=== PATIENT | female | born 1930 | race African-American/Black ===

== ENCOUNTER 2017-01-08 07:59 | Outpatient (CLI) | payer MEDICARE, BC ==
[~2017-01-08] VITALS: Ht 160 cm; Wt 60.5 kg
--- NOTE | ~2017-01-08 | HEMODYNAMI ---
PATIENT:MEG GAYTAN MEDICAL RECORD: [id number] : 32 LOCATION:[facility] ADMISSION DATE: 01/08/17 Generatedon:01/08/201711:38 Patient name: MEG GAYTAN Patient #: [id number] SSN: : 1930 Date of study: 01/08/2017 Page: Of Hemodynamic Procedure Report Patient Data Patient Demographics Procedure consent was obtained First Name: MEG Gender: Female Last Name: LUCILA : 1930 Patient #: [id number] Age: 86 year(s) Race: Black Additional ID: [id number] Contact details Address: [address] [place] [address] DRIVE State: [place] City: [facility] Zip code: [address] Past Medical History Allergies Allergen Reaction Date Comments Reported Codeine 01/08/2017 Other allergy 01/08/2017 Pneumococcal vaccine Admission Admission Data Admission Date: 01/08/2017 Admission Time: 7:59 Procedure Procedure Types Cath Procedure Diagnostic Procedure [facility] w/Coronaries FFR/IVUS Intra-Coronary IVUS Initial PCI Procedure Coronary Stent Initial Miscellaneous Procedures Moderate Sedation up to 30 minutes Procedure Description Procedure Date Procedure Date: 01/08/2017 Procedure Start Time: 11:16 Procedure End Time: 11:35 Procedure Staff Name Function Fritz Hopkins MD Performing Physician Desiree Cano RT Scrub Jamie Campos RN Nurse Belkis Tomas RT Monitor Procedure Data Cath Procedure Fluoroscopy Diagnostic fluoroscopy Total fluoroscopy Time: 3.2 time: 3.2 min min Diagnostic fluoroscopy Total fluoroscopy dose: 380 dose: 380 mGy mGy Contrast Material Contrast Material Type Amount (ml) Isovue 300 80 Entry Location Entry Primary Successful Side Size Upsize Upsize Entry Closure Succes sful Closure Location (Fr) 1 (Fr) 2 (Fr) Remarks Device Remarks Femoral Right 5 Fr 6 Fr Exoseal artery Short Estimated blood loss: 10 ml Diagnostic catheters Device Type Used For End Catheter Placement Cordis 5Fr Pigtail LV Angiography Catheter (MP) Cordis 5Fr JL 4.0 Left Coronary Catheter (MP) Angiography Cordis 5Fr 3DRC Catheter Right Coronary (MP) Angiography Procedure Complications No complications Procedure Medications Medication Administration Route Dosage 0.9% NaCl I.V. 100 ml/hr Oxygen NC 2 l/min Heparin Flush Bag added to field 2 bags (1000units/500ml NS) Lidocaine 2% added to field 20 Versed I.V. 0.5 mg Fentanyl I.V. 25 mcg Heparin Bolus I.V. 4000 units Integrilin (Bolus I.V. 5.6 ml 2mg/ml) Plavix P.O. 600 mg Hemodynamics Rest Heart Rate: 63 (bpm) Snapshots Pre Cath Intra NCS Post Cath Vital Signs Time Heart Resp SPO2 etCO2 CD4ifkx NIBP Rhythm Pain Sedation Rate (ipm) (%) (mmHg) (mmHg) (mmHg) Status Level (bpm) 11:07:32 66 31 93 0 0 111/66(96) NSR 0 (11) 10(A) , No pain 11:12:02 65 16 94 0 0 106/67(89) NSR 0 (11) 10(A) , No pain 11:16:35 57 14 93 0 0 94/57(77) NSR 0 (11) 9(A) , No pain 11:21:05 59 16 94 0 0 92/50(71) NSR 0 (11) 9(A) , No pain 11:25:36 52 19 93 0 0 98/49(72) NSR 0 (11) 9(A) , No pain 11:30:06 54 20 95 0 0 93/54(76) NSR 0 (11) 9(A) , No pain 11:34:36 57 15 93 0 0 96/48(78) NSR 0 (11) 9(A) , No pain Medications Time Medication Route Dose Verified Delivered Reason Notes Effectiveness by by 11:02:57 0.9% NaCl I.V. 100 Jamie Jamie Per physician ml/hr Beth Campos RN RN 11:03:07 Oxygen NC 2 Jamie Jamie Per physician l/min Beth Campos RN RN 11:03:30 Heparin Flush added 2 Jamie Jamie used for Bag to bags Beth Campos procedure (1000units/500ml field RN RN NS) 11:03:43 Lidocaine 2% added 20ml Jamie Jamie for local to vial Beth Campos anesthetic field RN RN 11:13:46 Versed I.V. 0.5 Jamie Jamie for sedation mg Beth Campos RN RN 11:13:57 Fentanyl I.V. 25 Jamie Jamie for sedation mcg Beth Campos RN RN 11:23:17 Heparin Bolus I.V. 4000 Jamie Jamie for units Beth Campos anticoagulation RN RN 11:26:27 Integrilin I.V. 5.6 Jamie Jamie for (Bolus 2mg/ml) ml Beth Campos antiplatelet RN RN therapy 11:32:55 Plavix P.O. 600 Jamie Jamie for mg Beth Campos antiplatelet RN RN therapy Procedure Log Time Note 10:43:47 Belkis Counts RT(R) sent for patient. Start room use. 10:43:48 Time tracking: Regular hours 10:43:52 Plan of Care:Hemodynamics will remain stable., Cardiac rhythm will remain stable., Comfort level will be maintained., Respiratory function will remain adequate., Patient/ family verbilizes understanding of procedure., Procedure tolerated without complication., Recovers from procedure without complications.. 10:57:41 Patient received from Pre/Post Procedure Room to CCL 1 Alert and oriented. Tansferred to table in Supine position. 10:57:42 Warm blankets applied, and noe hugger turned on for patient comfort. 10:57:43 Correct patient and procedure confirmed by team. 10:57:44 Signed procedure consent form obtained from patient. 10:57:45 ECG and BP/O2 sat monitors applied to patient. 10:57:46 Full Disclosure recording started 11:02:57 0.9% NaCl 100 ml/hr I.V. was administered by Jamie Campos RN; Per physician; 11:03:07 Oxygen 2 l/min NC was administered by Jamie Campos RN; Per physician; 11:03:30 Heparin Flush Bag (1000units/500ml NS) 2 bags added to field was administered by Jamie Campos RN; used for procedure; 11:03:43 Lidocaine 2% 20ml vial added to field was administered by Jamie Campos RN; for local anesthetic; 11:06:37 Vital chart was started 11:09:21 Rhythm: sinus rhythm 11:11:23 Baseline sample Acquired. 11:11:28 H&P Date Dictated: 01/08/2017 New H&P dictated by physician.. 11:11:29 Pre-procedure instructions explained to patient. 11:11:29 Pre-op teaching completed and patient verbalized understanding. 11:11:30 Family in patients room. 11:11:32 Patient NPO since Midnight. 11:11:39 Patient allergic to Codeine 11:11:51 Patient allergic to Other allergyPneumococcal vaccine 11:11:53 Is the patient allergic to Iodine/contrast media? No. 11:11:56 Is patient on blood thinner?No 11:11:59 Patient diabetic? Yes. 11:12:00 If diabetic: On Metformin? Yes 11:12:02 If on Metformin: Last Dose? 01/06/2017 11:12:06 Previous problem with sedation/anesthesia? No ? 11:12:07 Snore? No 11:12:08 Sleep apnea? No 11:12:09 Deviated septum? No 11:12:10 Opens mouth fully? Yes 11:12:10 Sticks out tongue? Yes 11:12:12 Airway obstruction? No ? 11:12:14 Dentures? No ? 11:12:16 Pre procedure: right dorsailis pedis pulse 1+ Palpable, but thready & weak; easily obliterated 11:12:18 Modified Nelson's test Ulnar > 7 seconds. 11:12:20 Patient pain scale 0/10 ?. 11:12:28 IV patent on arrival in right forearm with 0.9% NaCl at O. 11:13:04 Lab results completed and on chart. 11:13:06 Right groin area was prepped with chlora-prep and draped in sterile fashion 11:13:07 Final Timeout: patient, procedure, and site verified with staff and physician. All members of the team are in agreement. 11:13:09 Right groin site verified by team. 11:13:11 Physical assessment completed. ASA score P 2 - A patient with mild systemic disease as per Fritz Hopkins MD. 11:13:14 Sedation plan: IV Moderate Sedation Versed, Fentanyl 11:13:46 Versed 0.5 mg I.V. was administered by Jamie Campos RN; for sedation; 11:13:57 Fentanyl 25 mcg I.V. was administered by Jamie Campos RN; for sedation; 11:15:20 Use device set Femoral Dx 11:15:25 Zero performed for pressure channel P1 11:15:33 Zero performed for pressure channel P1 11:15:47 Acist Syringe opened to sterile field. 11:15:48 Bag Decanter opened to sterile field. 11:15:49 Medline Cath Pack opened to sterile field. 11:15:50 Terumo 5Fr Raymond Sheath opened to sterile field. 11:15:50 St Phu 260cm J .035 wire opened to sterile field. 11:15:51 Acist Hand Control opened to sterile field. 11:15:51 Acist Manifold opened to sterile field. 11:15:52 Diagnostic Infinity 5Fr Multipack catheter opened to sterile field. 11:15:52 Tegaderm 4 x 4 opened to sterile field. 11:16:03 Procedure started. 11:16:07 Local anesthetic to right femoral artery with Lidocaine 2% by Fritz Hopkins MD.INITIAL ACCESS ONLY 11:16:46 A 5 Fr sheath was inserted into the Right Femoral artery 11:16:56 A Cordis 5Fr Pigtail Catheter (MP) was advanced over the wire and used for LV Angiography. 11:17:17 LV gram done using ESCALANTE 11:17:22 EF : 50 % 11:17:27 Injector settings: Ml/sec: 10, Volume: 20, 11:17:31 Catheter removed. 11:18:11 A Cordis 5Fr JL 4.0 Catheter (MP) was advanced over the wire and used for Left Coronary Angiography. 11:18:58 Catheter removed. 11:19:17 A Cordis 5Fr 3DRC Catheter (MP) was advanced over the wire and used for Right Coronary Angiography. 11:19:40 Terumo 6Fr Raymond Sheath opened to sterile field. 11:19:41 Pastor Whisper J 300cm 0.014 guide wire opened to sterile field. 11:19:41 Merit BasixCompak Inflation Kit opened to sterile field. 11:19:42 [place] IVUS Catheter opened to sterile field. 11:20:30 RCA OCCLUDED 11:21:02 Cordis 6FR XB 4.0 guide catheter opened to sterile field. 11:21:14 Medtronic Launcher 6Fr EBU 4.0 guide catheter opened to sterile field. 11:21:41 Sheath upsized to a 6 Fr Short. 11:21:48 6 Fr EBU 4.0 guide catheter was inserted over the wire 11::57 Guide Catheter removed. unable to cannulate vessel. 11:23:06 Cordis 6FR XB 3.5 guide catheter opened to sterile field. 11:23:17 Heparin Bolus 4000 units I.V. was administered by Jamie Campos RN; for anticoagulation; 11::18 6 Fr XB 3.5 guide catheter was inserted over the wire 11::08 Whisper wire advanced. 11:24:27 IVUS catheter advanced over wire. 11:24:31 IVUS pass to Circ lesion performed. 11::27 Integrilin (Bolus 2mg/ml) 5.6 ml I.V. was administered by Jamie Campos RN; for antiplatelet therapy; 11::34 IVUS catheter removed over wire. 11::01 Procedure type changed to Cath procedure, Diagnostic procedure, LHC, LHC w/Coronaries, FFR/IVUS, Intra-Coronary IVUS Initial, PCI procedure, Coronary Stent Initial, Miscellaneous Procedures, Moderate Sedation up to 30 minutes 11::58 Inflation Number: 1 A [place] OTW 3.5 x 18 stent was prepped and advanced across the Mid CX. The stent was deployed at 11 ROSI for 0:05 (min:sec). 11:28:11 Inflation number: 2 The stent balloon was then re-inflated across the Mid CX to 15 ROSI for 0:07 (min:sec). 11:28:32 Stent catheter was removed intact over wire. 11:28:33 Wire removed. 11:28:33 Guide catheter removed. 11::41 Sheath removed intact; hemostasis achieved with Exoseal to the Right Femoral artery. 11:29:08 Procedure ended.(Physican Out) 11:30:31 Fluoroscopy time 03.20 minutes. 11:30:35 Flurop Dose total: 380 11:30:35 Fluoroscopy dose: 380 mGy 11:30:38 Contrast amount:Isovue 300 80ml. 11:30:39 Sharps counted by scrub and verified by R.N. 11:30:41 Insertion/operative site no bleeding no hematoma. 11:30:46 Post-op/insertion site Right Femoral artery dressed using a 4 x 4 and Tegaderm. 11:30:49 Post right femoral artery:stable, clean and dry 11:30:51 Post Procedure Pulses reassessed and unchanged 11:31:57 Post procedure: right dorsailis pedis pulse 2+ Normal; easily identifiable; not easily obliterated. 11:31:59 Post-procedure physical assessment completed. ASA score P 2 - A patient with mild systemic disease as per Fritz Hopkins MD. 11:32:02 Post procedure rhythm: unchanged. 11:32:04 Estimated blood loss: 10 ml 11:32:05 Post procedure instruction explained to patient.Patient verbalizes understanding. 11:32:08 Patient needs reinforcement of post procedure teaching. 11:32:21 Procedure Complication : No complications 11:32:23 See physician's report for complete and final results. 11:32:48 Cordis 6Fr Exoseal opened to sterile field. 11:32:55 Plavix 600 mg P.O. was administered by Jamie Campos RN; for antiplatelet therapy; 11:33:49 Procedure and supply charges have been captured, reviewed, submitted and are correct. 11:35:40 Vital chart was stopped 11:35:51 Report given to Pre/Post Procedure Room. 11:35:53 Patient transfered to Pre/Post Procedure Room with Stretcher. 11:35:56 Procedure ended. 11:35:56 Full Disclosure recording stopped 11:35:58 End room use (Document Last) Intervention Summary Intervention Notes Time ActionType Lesion and Equipment Action# Pressure Duration Attributes Used 11:27:58 Place stent Mid CX Stephane OTW 1 11 00:05 3.5 x 18 stent 11:28:11 Reinflate Mid CX Stephane OTW 2 15 00:07 stent 3.5 x 18 balloon stent Device Usage Item Name Manufacture Quantity Catalog Hospital Part Current Minima l Lot# / Number Charge Number Stock Stock Serial# Code Acist Acist 1 16245 371942 730375 549984 20 Syringe Medical Systems Inc Bag Microtek 1 2001S 475757 39686 805365 5 L'Usine Ã [employer]. Medline Cardinal 1 [id number] 106383 46358 400249 5 OANDA Terumo 5Fr Terumo 1 [id number] 936086 428758 787232 [address] Phu 1 943185 338727 814267 101797 30 260cm J .035 wire Acist Hand Acist 1 11248 105118 536494 662861 5 [employer] Inc. (Inspect Manager) Acist Acist 1 92625 755659 674267 618485 5 mobifriends Systems Inc Diagnostic Cardinal 1 [id number] 060177 86936 794536 30 Infinity Health 5Fr Multipack catheter Tegaderm 4 3M 1 1626W 639236 297289 379577 5 x 4 Cordis 5Fr Cardinal 1 764390 5 Pigtail Health Catheter (MP) Cordis 5Fr Cardinal 1 332218 5 JL 4.0 Health Catheter (MP) Cordis 5Fr Cardinal 1 569790 5 3DRC Health Catheter (MP) Terumo 6Fr Terumo 1 [id number] 590940 722152 037535 40 Raymond Sheath Pastor Pastor 1 [id number] 879514 685492 389988 5 isper J Vascular 300cm 0.014 guide wire Merit Merit 1 II1051 132334 478466 703054 15 Baihe Medical Inflation Kit [place] 1 11856C 227451 677912 208369 8 [place] Eagleye IVUS Catheter Cordis 6FR Cardinal 1 [id number] 196219 814457 827135 2 XB 4.0 Health guide catheter Medtronic Medtronic 1 [id number] 136251 69488 610128 1 Launcher 6Fr EBU 4.0 guide catheter Cordis 6FR Cardinal 1 [id number] 494517 983872 516075 2 XB 3.5 Health guide catheter [place] OTW Medtronic 1 [id number] 649111 3548922 679608 5 [id number] 3.5 x 18 stent Cordis 6Fr Cardinal 1 EX600 861827 888723 779723 10 [facility] LLLer Signature Audit Ray Stage Time Signature Unsigned Intra-Procedure 01/08/2017 Belkis 11:38:31 AM Counts RT(R) Signatures Monitor : Belkis Signature : Counts RT Date : Time : [facility] [address] [facility] [place] [address]
[~2017-01-08 07:59] MED LIST: ASPIRIN EC81 M1; CALAN SR240 MG PO; ELIQUIS2.5 MG PO; FERROUS SULFAT325 MG PO; GLUCOTROL XL 1010 MG PO; HYDRALAZINE HCL25 MG PO; LASIX20 MG PO; PRANDIN0.5 MG PO; PRANDIN1 MG PO; PRANDIN2 MG PO; TRADJENTA5 MG PO; ULTRAM50 MG PO; ZESTORETIC 10/11 TAB PO
[2017-01-08 08:32] VITALS: BP 127/55; Ht 160 cm; Wt 60.5 kg
[2017-01-08 09:01] LABS: BASOPHILS 0.2 % (0-2); EOSINOPHILS 0.9 % (0-7); HEMATOCRIT 36.5 % (36.0-48.0); HEMOGLOBIN 11.8 g/dL (12-16); IMMATURE GRANULOCYTES 0.6 % (0-5); LYMPHOCYTES 25.6 % (15-50); MCH 29.2 pg (26.0-34.0); MCHC 32.3 g/dL (31.0-37.0); MCV 90.3 fL (80.0-100.0); MEAN PLATELET VOLUME 9.9 fL (7.4-10.4); MONOCYTES 7.2 % (2-11); NEUTROPHILS 65.5 % (40-80); PLATELET COUNT 236 10x3/uL (130-400); RBC 4.04 10x6/uL (4.00-5.40); WBC 5.4 10x3/uL (4.8-10.8)
[2017-01-08 09:16] LABS: ANION GAP 13.1 mmol/L (8-16); CALCIUM 8.7 mg/dL (8.5-10.1); CARBON DIOXIDE 30.5 mmol/L (21.0-32.0); CREATININE - SERUM 4.8 mg/dL (0.6-1.3); POTASSIUM - SERUM 3.6 mmol/L (3.5-5.1)
--- NOTE | 2017-01-08 12:05 | NUR ---
2L NC, NO RESP DISTRESS. RIGHT GROIN 6F EXOSEAL CDI, NO BLEEDING OR HEMATOMA NOTED. NO C/O NAUSEA OR CHEST PAIN. VSS. INSTRUCTED PT TO KEEP HEAD FLAT ON PILLOW AND RIGHT LEG STRAIGHT.
[2017-01-08] MEDS ORDERED: PLAVIX75 MG PO (12:20)
--- NOTE | 2017-01-08 12:35 | NUR ---
2L NC, NO RESP DISTRESS NOTED. RIGHT GROIN 6F EXOSEAL CDI, NO BLEEDING OR HEMATOMA NOTED. NO C/O PAIN OR NAUSEA. VSS. WILL CONTINUE TO MONITOR.
--- NOTE | 2017-01-08 12:50 | NUR ---
RIGHT GROIN 6F EXOSEAL CDI, NO BLEEDING NOTED. 2L NC, NO RESP DISTRESS. DENIES ANY CHEST PAIN OR NAUSEA. SANDWICH AND DRINK GIVEN. VSS. CALL LIGHT WITHIN REACH.
--- NOTE | 2017-01-08 13:20 | NUR ---
RESTING QUIETLY WITH EYES CLOSED. 2L NC, NO RESP DISTRESS NOTED. RIGHT GROIN 6F EXOSEAL CDI, NO BLEEDING OR HEMATOMA NOTED. DENIES ANY PAIN. FAMILY AT BEDSIDE, CALL LIGHT WITHIN REACH.
--- NOTE | 2017-01-08 13:50 | NUR ---
RESTING QUIETLY WITH EYES CLOSED. 2L NC, NO RESP DISTRESS NOTED. VSS. RIGHT GROIN 6F EXOSEAL CDI, NO BLEEDING OR HEMATOMA NOTED. FAMILY AT BEDSIDE, CALL LIGHT WITHN REACH.
--- NOTE | 2017-01-08 14:55 | NUR ---
HOB ELEVATED 30 DEGREES. DRINK AND FOOD GIVEN. NO C/O NAUSEA. RIGHT GROIN 6F EXOSEAL CDI.
--- NOTE | 2017-01-08 15:21 | NUR ---
PIV REMOVED WITH DRESSING APPLIED. R/GROIN CDI NO BLEEDING NO HEMATOMA NOTED. CHEST PAIN IS DENIED. PATIENT UP TO GET DRESSED FOR DISCHARGE HOME
--- NOTE | 2017-01-08 15:32 | NUR ---
UP TO RESTROOM TO VOID.
--- NOTE | 2017-01-11 16:47 | OP ---
PATIENT NAME: MEG GAYTAN MEDICAL RECORD: [id number] :31 LOCATION:D.CAT ADMISSION DATE: SURGEON: ERICA FRANCO MD DATE OF OPERATION: 01/08/2017 PROCEDURES: 1. PTCA stent left circumflex. 2. Left heart catheterization. 3. Selective coronary angiography. 4. Left ventriculogram. 5. Intravascular ultrasound. INDICATION: Angina and coronary artery disease. PROCEDURE IN DETAIL: After informed consent was obtained and after a detailed explanation of the risks, benefits as well as alternative therapies, the patient elected to proceed with angiogram and angioplasty. The right femoral area was prepped and draped in normal sterile fashion. The right femoral artery was cannulated via modified Seldinger technique with placement of 6-Romansh sheath. All catheters exchanged through this sheath. FINDINGS: Left ventriculogram was performed in the standard 30-degree ESCALANTE view, reveals ejection fraction at 50%. SELECTIVE CORONARY ANGIOGRAPHY: 1. Left main showed no significant angiographic disease. 2. Left anterior descending has 80+ percent stenosis times 2 in the proximal vessel. 3. Left circumflex has a 70% stenosis in the mid vessel confirmed by intravascular ultrasound. 4. The right coronary has a chronic total occlusion. The distal right coronary fills via left to right collaterals that are very well-developed. PTCA STENT OF THE LEFT CIRCUMFLEX: The stent used is a 3.5 x 18 mm Kamrar. Result was 0% residual stenosis. OVERALL IMPRESSION: Successful percutaneous transluminal coronary angioplasty stent of the left circumflex going from 70+ percent initial stenosis to 0% residual stenosis. PLAN: PTCA stent of the LAD in the near future. TRANSINT:[id number] Voice Confirmation ID: [id number] DOCUMENT ID: [id number] ERICA FRANCO MD at 1647 CC: [id number] DICTATION DATE: 01/08/17 1134 SOURCING INTERN: 01/08/17 1211 DEP CLI 01/08/[address] [address]
--- NOTE | 2017-01-11 16:47 | HP ---
PATIENT: MEG GYATAN MEDICAL RECORD: [id number] ACCOUNT: [id number] LOCATION:[facility] : 32 ADMISSION DATE: 01/08/17 HISTORY AND PHYSICAL EXAMINATION DIAGNOSES: 1. Angina. 2. Diabetes. 3. Hypertension. 4. End-stage renal failure. HISTORY OF PRESENT ILLNESS: Mrs. Gaytan presents with anginal symptomatology as an outpatient in an increasing fashion. She underwent risk stratification with nuclear stress test revealing a significant perfusion defect inferior apically as well as laterally, now brought for cardiac catheterization due to ongoing symptomatology. PHYSICAL EXAMINATION: GENERAL APPEARANCE: Well-nourished, well-developed, appears stated age. Level of distress, comfortable. PSYCHIATRIC: Mental status, alert, normal affect. Orientation, oriented to time, place and person. EYES: Lids and conjunctiva, noninjected. No discharge, no pallor. ENT: Lips, teeth, gums, normal dentition. Oropharynx, no cyanosis, no pallor. NECK: Carotid arteries, bilateral normal upstroke, no bruits, no thrills. JUGULAR VEINS: No jugular venous pressure or distention. CERVICAL LYMPH NODES: Nontender, nonenlarged. THYROID: Not enlarged. Nontender. No nodules. LUNGS: Respiratory effort, unlabored. CHEST: Normal curvature. No thoracic deformity. No chest wall tenderness. Percussion, resonant. Auscultation, clear. No wheezes, no rales, no rhonchi. CARDIOVASCULAR: Precordial exam, nondisplaced. No heaves or pericardial thrills. Rate and rhythm, regular. Heart sounds, normal S1, normal S2. No S3, no gallop, no rub. Systolic murmur, not heard. Diastolic murmur, not heard. EXTREMITIES: No cyanosis, no edema. Peripheral pulses, full and equal in all extremities, except as noted. No bruits appreciated. ABDOMEN: Soft, nondistended. Normal aorta. No bruit. Nontender. No masses. Liver, nontender, no hepatomegaly. Spleen, nontender, no splenomegaly. MUSCULOSKELETAL: No joint tenderness. No joint swelling. No erythema. NEUROLOGICAL: Normal gait, normal strength, normal tone. SKIN: Warm and dry. REVIEW OF SYSTEMS: The patient reports easy bruising but reports no swollen glands. The patient reports no fever, no night sweats, no significant weight gain, no significant weight loss. No significant exercise tolerance. The patient reports no dry eyes, no irritation, no vision change. Patient reports no difficulty hearing and no ear pain. Patient reports no frequent nose bleeds or nose and sinus problems. Patient reports on arm pain on exertion. No shortness of breath while lying down. No history of heart murmur. Patient reports no cough, no wheezing or coughing up blood. Patient reports no abdominal pain, no vomiting. Normal appetite. No diarrhea and not vomiting blood. No nausea and no constipation. Patient reports no incontinence. No difficulty urinating. No hematuria. No increased frequency. Patient reports no muscle aches. No weakness, no arthralgias, no back pain. No swelling of the extremities. Patient reports no abnormal mole, no jaundice, no rashes. Reports HISTORY AND PHYSICAL [id number] MEG GAYTAN no loss of consciousness. No weakness and no numbness. No seizures, dizziness, or headaches. The patient reports no depression, no sleep disturbance, feeling safe in a relationship and no alcohol abuse. Patient reports on fatigue. Reports no runny nose or sinus pressure. No itching, no hives, and no frequent sneezing. OVERALL IMPRESSION: Increasing anginal symptomatology, abnormal nuclear stress test; most likely she has hemodynamically significant coronary artery disease. We will proceed with coronary angiography. Further care depends upon findings of the angiography. TRANSINT:[id number] Voice Confirmation ID: [id number] DOCUMENT ID: [id number] ERICA FRANCO MD at 1647 CC: [id number] DICTATION DATE: 01/08/17 0845 DIGITAL CARTOGRAPHER: 01/08/17 0909 DEP CLI 01/08/17 [place] [id number] [place] [id number]
== END 2017-01-08 16:00 ==
LOC: D.CATH 07:59
PROVIDERS: Internal Medicine Interventional Cardiology
DX: I20.9 Angina pectoris, unspecified (principal); E11.22 Type 2 diabetes mellitus with diabetic chronic kidney disease; I12.0 Hypertensive chronic kidney disease with stage 5 chronic kidney disease or end stage renal disease; N18.6 End stage renal disease; R94.30 Abnormal result of cardiovascular function study, unspecified; Z01.812 Encounter for preprocedural laboratory examination
CPT/HCPCS: 93458; 92978; C9600

== ENCOUNTER → 2017-01-15 07:49 | Outpatient (CLI) | payer MEDICARE, BC ==
--- NOTE | ~2017-01-15 | HEMODYNAMI ---
PATIENT:MEG GAYTAN MEDICAL RECORD: [id number] : 32 LOCATION:[facility] ADMISSION DATE: 01/15/17 Generatedon:01/15/201710:14 Patient name: MEG GAYTAN Patient #: [id number] SSN: [id number] : 1930 Date of study: 01/15/2017 Page: Of Hemodynamic Procedure Report Patient Data Patient Demographics Procedure consent was obtained First Name: MEG Gender: Female Last Name: LUCILA : 1930 Patient #: [id number] Age: 86 year(s) Race: Black SSN: [id number] Additional ID: [id number] Contact details Address: [address] [place] [address] [place]IVE State: [place] [facility] [place]: [address] Past Medical History Allergies Allergen Reaction Date Comments Reported Codeine 01/08/2017 Other allergy 01/08/2017 Pneumococcal vaccine Other allergy 01/15/2017 codeine Admission Admission Data Admission Date: 01/15/2017 Admission Time: 7:49 Lab Results Lab Result Date: 01/15/2017 Lab Result Time: 0:00 Biochemistry Name Units Result Min Max BUN mg/dl 18 --(---*)-- 7 18 Creatinine mg/dl 5 --(----)-* 0.6 1.3 CBC Name Units Result Min Max Hemoglobin g/dl 11.6 *-(----)-- 13.5 17.5 Procedure Procedure Types Cath Procedure PCI Procedure Coronary Stent Initial Miscellaneous Procedures Moderate Sedation up to 45 minutes Procedure Description Procedure Date Procedure Date: 01/15/2017 Procedure Start Time: 9:43 Procedure End Time: 10:09 Procedure Staff Name Function Fritz Hopkins MD Performing Physician Haylee Huggins RT Scrub Leif Brooks RN Nurse Tia Hogan RT Monitor Indication CAD Procedure Data Cath Procedure Fluoroscopy Diagnostic fluoroscopy Total fluoroscopy Time: time: 13.5 min 13.5 min Diagnostic fluoroscopy Total fluoroscopy dose: dose: 1161 mGy 1161 mGy Contrast Material Contrast Material Type Amount (ml) Isovue 300 105 Entry Location Entry Primary Successful Side Size Upsize Upsize Entry Closure Succes sful Closure Location (Fr) 1 (Fr) 2 (Fr) Remarks Device Remarks Femoral Right 6 Fr Exoseal artery Short Estimated blood loss: 5 ml Procedure Complications No complications Procedure Medications Medication Administration Route Dosage Oxygen NC 2 l/min Lidocaine 2% added to field 20 Heparin Flush Bag added to field 2 bags (1000units/500ml NS) 0.9% NaCl I.V. 50 ml/hr Versed I.V. 0.5 mg Fentanyl I.V. 25 mcg Heparin Bolus I.V. 4000 units 0.9% NaCl I.V. bolus 100 ml Hemodynamics Rest HGB: 11.6 (g/dl) Heart Rate: 59 (bpm) Snapshots Pre Cath Intra NCS Post Cath Vital Signs Time Heart Resp SPO2 NIBP Rhythm Pain Sedation Rate (ipm) (%) (mmHg) Status Level (bpm) 9:29:21 60 15 100 116/56(93) NSR 0 (11) 10(A) , No pain 9:33:33 56 16 100 108/54(84) NSR 0 (11) 10(A) , No pain 9:37:43 52 14 99 87/47(70) NSR 0 (11) 10(A) , No pain 9:41:46 50 14 100 84/44(61) NSR 0 (11) 9(A) , No pain 9:45:50 51 13 100 84/43(61) NSR 0 (11) 9(A) , No pain 9:49:54 51 14 100 74/42(59) NSR 0 (11) 9(A) , No pain 9:53:54 51 14 100 77/38(57) NSR 0 (11) 9(A) , No pain 9:57:55 51 14 100 72/36(60) NSR 0 (11) 9(A) , No pain 10:01:53 53 15 100 84/45(64) NSR 0 (11) 9(A) , No pain 10:05:57 51 15 100 87/44(65) NSR 0 (11) 9(A) , No pain 10:10:00 56 15 100 89/46(70) NSR 0 (11) 10(A) , No pain Medications Time Medication Route Dose Verified Delivered Reason Notes Effectiveness by by 9:28:06 Oxygen NC 2 Fritz Monicaie used for l/min Sandeep Brooks RN procedure 9:28:13 Lidocaine 2% added 20ml Fritz Fritz for local to vial Sandeep Hopkins MD anesthetic field 9:28:19 Heparin Flush added 2 Fritz Fritz used for Bag to bags Sandeep Hopkins MD procedure (1000units/500ml field NS) 9:28:29 0.9% NaCl I.V. 50 Fritzisrael Andersonie Per physician ml/hr Sandeep Brooks RN 9:35:00 Versed I.V. 0.5 Fritz Andersonie for sedation mg Sandeep Brooks RN 9:35:05 Fentanyl I.V. 25 Fritz Andersonie for sedation mcg Sandeep Brooks RN 9:45:17 Heparin Bolus I.V. 4000 Fritzisrael Andersonie for verifie d units Sandeep Brooks RN anticoagulation with dr hopkins 9:45:39 0.9% NaCl I.V. 100 Fritz Yadav Per physician bolus ml Sandeep Brooks RN Procedure Log Time Note 9:05:55 Leif Brooks RN sent for patient. Start room use. 9:10:54 Informed consent obtained and on chart 9:12:32 Diagnostic Cath Status : Elective 9:12:51 Indication : CAD 9:12:56 Time tracking: Regular hours 9:13:00 Plan of Care:Hemodynamics will remain stable., Cardiac rhythm will remain stable., Comfort level will be maintained., Respiratory function will remain adequate., Patient/ family verbilizes understanding of procedure., Procedure tolerated without complication., Recovers from procedure without complications.. 9:27:32 Patient received from Pre/Post Procedure Room to CCL 2 Alert and oriented. Tansferred to table in Supine position. 9:28:02 Warm blankets applied, and noe hugger turned on for patient comfort. 9:28:03 Correct patient and procedure confirmed by team. 9:28:03 ECG and BP/O2 sat monitors applied to patient. 9:28:04 Baseline sample Acquired. 9:28:04 Vital chart was started 9:28:06 Oxygen 2 l/min NC was administered by Leif Brooks RN; used for procedure; 9:28:10 Rhythm: sinus rhythm 9:28:11 Full Disclosure recording started 9:28:13 Lidocaine 2% 20ml vial added to field was administered by Fritz Hopkins MD; for local anesthetic; 9:28:19 Heparin Flush Bag (1000units/500ml NS) 2 bags added to field was administered by Fritz Hopkins MD; used for procedure; 9:28:23 H&P Date Dictated: 01/15/2017 H&P Addendum completed by physician on day of procedure. (MUST COMPLETE FOR ALL OUTPATIENTS), New H&P dictated by physician.. 9:28:24 Pre-procedure instructions explained to patient. 9:28:24 Pre-op teaching completed and patient verbalized understanding. 9:28:25 Family in waiting room. 9:28:26 Patient NPO since Midnight. 9:28:29 0.9% NaCl 50 ml/hr I.V. was administered by Leif Brooks RN; Per physician; 9:28:40 Patient allergic to Other allergycodeine 9:28:42 Is the patient allergic to Iodine/contrast media? No. 9:28:43 Was the patient premedicated? No 9:30:47 Is patient on blood thinner?Yes 9:30:49 ACC The patient was administered the following blood thiners within the last 24 hours: ACCPlavix 9:30:54 Patient diabetic? Yes. 9:30:55 If diabetic: On Metformin? No 9:30:58 Previous problem with sedation/anesthesia? No ? 9:31:02 Snore? No 9:31:03 Sleep apnea? No 9:31:03 Deviated septum? No 9:31:05 Opens mouth fully? Yes 9:31:08 Sticks out tongue? Yes 9:31:22 Airway obstruction? No ? 9:31:28 Dentures? Yes out 9:32:57 Pre procedure: right dorsailis pedis pulse 1+ Palpable, but thready & weak; easily obliterated 9:33:01 Pre procedure: left dorsailis pedis pulse 1+ Palpable, but thready & weak; easily obliterated 9:33:05 Patient pain scale 0/10 ?. 9:33:18 IV patent on arrival in right wrist with 0.9% NaCl at O. 9:34:34 Lab Result : BUN 18 mg/dl 9:34:34 Lab Result : Creatinine 5 mg/dl 9:34:34 Lab Result : Hemoglobin 11.6 g/dl 9:34:38 Lab results completed and on chart. 9:34:42 Right groin area was prepped with chlora-prep and draped in sterile fashion 9:34:42 Alarms reviewed by R. N. 9:34:43 Sharps counted by scrub and verified by R.N. 9:34:44 Physician arrived 9:34:45 --------ALL STOP TIME OUT------ 9:34:45 Final Timeout: patient, procedure, and site verified with staff and physician. All members of the team are in agreement. 9:34:47 Right groin site verified by team. 9:34:50 Physical assessment completed. ASA score P 2 - A patient with mild systemic disease as per Fritz Hopkins MD. 9:34:53 Sedation plan: IV Moderate Sedation Versed, Fentanyl 9:34:58 Use device set Femoral PCI 9:34:59 Acist Syringe opened to sterile field. 9:35:00 Versed 0.5 mg I.V. was administered by Leif Brooks RN; for sedation; 9:35:00 Acist Hand Control opened to sterile field. 9:35:00 Bag Decanter opened to sterile field. 9:35:00 Medline Cath Pack opened to sterile field. 9:35:01 Terumo 6Fr Holcomb Sheath opened to sterile field. 9:35:01 St Phu 260cm J .035 wire opened to sterile field. 9:35:01 Merit BasixCompak Inflation Kit opened to sterile field. 9:35:02 Acist Manifold opened to sterile field. 9:35:02 Tegaderm 4 x 4 opened to sterile field. 9:35:05 Fentanyl 25 mcg I.V. was administered by Leif Brooks RN; for sedation; 9:35:25 Pastor Whisper J 300cm 0.014 guide wire opened to sterile field. 9:36:20 Zero performed for pressure channel P1 9:40:18 Cordis 6FR XBLAD 4.0 guide catheter opened to sterile field. 9:43:24 Procedure started. 9:43:27 Local anesthetic to right femoral artery with Lidocaine 2% by Fritz Hopkins MD.INITIAL ACCESS ONLY 9:43:37 A 6 Fr Short sheath was inserted into the Right Femoral artery 9:44:00 6 Fr xblad 4 guide catheter was inserted over the wire 9:44:39 LCA angiography performed. 9:44:41 Injector settings: Ml/sec: 3, Volume: 6, 9:45:17 Heparin Bolus 4000 units I.V. was administered by Leif Brooks RN; for anticoagulation; verified with dr hopkins 9:45:39 0.9% NaCl 100 ml I.V. bolus was administered by Leif Brooks RN; Per physician; 9:45:45 whisper wire advanced. 9:47:00 Wire advanced across lesion. 9:47:47 Inflation number: 1 A Mozec Rx 3.0 x 20 balloon was prepped and advanced across the Prox LAD, then inflated to 13 ROSI for 0:10 (min:sec). 9:48:07 Balloon removed over the wire. 9:51:20 The Holden OTW 3.5 x 22 stent was advanced then removed because of failure to cross lesion 9:51:32 [place] Sci Choice PT Extra Support J 300cm .014 gu opened to sterile field. 9:51:54 choice pt wire advanced. 9:53:17 Inflation number: [address] [place] [address] [facility] 3.5 X 15 balloon was prepped and advanced across the Prox LAD, then inflated to 15 ROSI for 0:10 (min:sec). 9:53:27 Inflation number: [address] [place] [address] [facility] 3.5 X 15 balloon was reinflated across the Prox LAD, to 15 ROSI for 0:10 (min:sec). 9:54:12 Inflation number: [address] [place] [address] [facility] 3.5 X 15 balloon was reinflated across the Prox LAD, to 21 ROSI for 0:10 (min:sec). 9:54:50 Balloon removed over the wire. 9:59:08 Inflation number: 5 A [place] Sci Flextome Cutting 3.0 X 10 balloon was prepped and advanced across the Prox LAD, then inflated to 13 ROSI for 0:10 (min:sec). 10:00:04 Inflation number: 6 The [place] Sci Flextome Cutting 3.0 X 10 balloon was reinflated across the Prox LAD, to 13 ROSI for 0:30 (min:sec). 10:01:35 Balloon removed over the wire. 10:03:50 Inflation Number: 7 A Stephane OTW 3.0 x 15 stent was prepped and advanced across the Prox LAD. The stent was deployed at 23 ROSI for 0:10 (min:sec). 10:04:20 Stent catheter was removed intact over wire. 10:08: Wire removed. 10:08:10 Guide catheter removed. 10:08:18 Cordis 6Fr Exoseal opened to sterile field. 10:08:28 Sheath removed intact; hemostasis achieved with Exoseal to the Right Femoral artery. 10:08:46 Procedure ended.(Physican Out) 10:08:56 Fluoroscopy time 13.50 minutes. 10:09:00 Flurop Dose total: 1161 10::00 Fluoroscopy dose: 1161 mGy 10::04 Contrast amount:Isovue 300 105ml. 10:09:06 Sharps counted by scrub and verified by R.N. 10:09:06 Insertion/operative site no bleeding no hematoma. 10:09:09 Post-op/insertion site Right Femoral artery dressed using a 4 x 4 and Tegaderm. 10:09:12 Post right femoral artery:stable 10:09:13 Post Procedure Pulses reassessed and unchanged 10:09:16 Post procedure rhythm: unchanged. 10:09:18 Estimated blood loss: 5 ml 10:09:20 Post procedure instruction explained to patient.Patient verbalizes understanding. 10:09:20 Patient needs reinforcement of post procedure teaching. 10:09:38 Procedure type changed to Cath procedure, PCI procedure, Coronary Stent Initial, Miscellaneous Procedures, Moderate Sedation up to 45 minutes 10:09:39 Procedure and supply charges have been captured, reviewed, submitted and are correct. 10:09:44 Procedure Complication : No complications 10::47 Vital chart was stopped 10::47 See physician's report for complete and final results. 10:09:52 Report given to Pre/Post Procedure Room. 10:09:55 Patient transfered to Pre/Post Procedure Room with Stretcher. 10::57 Procedure ended. 10::57 Full Disclosure recording stopped 10:10:04 ACC-PCI Only Patient was given prescriptions, or instructed by Fritz Hopkins MD to start/continue the following medications upon discharge: Plavix 10:10:05 End room use (Document Last) Intervention Summary Intervention Notes Time ActionType Lesion and Equipment Action# Pressure Duration Attributes Used 9:47:47 Inflate Prox LAD Mozec Rx 1 13 00:10 balloon 3.0 x 20 balloon 9:51:20 Discard Stephane OTW Stent 3.5 x 22 stent 9:53:17 Inflate Prox LAD [place] 2 15 00:[address] [facility] 3.5 X 15 balloon 9:53:27 Reinflate Prox LAD [place] 3 15 00:[address] [facility] 3.5 X 15 balloon 9:54:12 Reinflate Prox LAD [place] 4 21 00:[address] [facility] 3.5 X 15 balloon 9:59:08 Inflate Prox LAD [place] 5 13 00:10 balloon Sci Flextome Cutting 3.0 X 10 balloon 10:00:04 Reinflate Prox LAD [place] 6 13 00:30 balloon Sci Flextome Cutting 3.0 X 10 balloon 10:03:50 [address] stent Prox LAD Stephane OTW 7 23 00:10 3.0 x 15 stent Device Usage Item Name Manufacture Quantity Catalog Number Hospital Part Current Min imal Lot# / Charge Number Stock Stock Serial# Code Acist Acist 1 [id number] 852373 232991 [id number] 20 Syringe Medical Systems Inc Acist Hand Acist 1 75289 002643 192514 813750 5 Control Medical Systems Inc Bag Microtek 1 2002S 942997 25294 636018 5 404 Found! Medical Inc. Medline Cardinal 1 [id number] 428667 76658 411496 5 Cath Pack Health Terumo 6Fr Terumo 1 PEI109 912528 798535 869454 [address] Phu St Phu 1 174070 870371 849279 904608 30 260cm J .035 wire Merit Merit 1 [id number] 821772 157937 545326 15 Intrallect Medical Inflation Kit Acist Acist 1 56874 006955 013424 553174 5 Manifold Medical Systems Inc Tegaderm 4 3M 1 1626W 005034 495192 733251 5 x 4 Pastor Pastor 1 [id number] 817462 703035 885744 5 Whisper J Vascular 300cm 0.014 guide wire Cordis 6FR Cardinal 1 [id number] 022889 413800 186766 3 XBLAD 4.0 Health guide catheter Mozec Rx Cardinal 1 [id number] 892385 92366 337809 5 UMOB06 3.0 x 20 Health balloon Stephane OTW Medtronic 1 [id number] 709664 4578147 067255 5 [id number] 3.5 x 22 stent [place] Sci Akron 1 [id number] 688417 423067 647200 5 [id number] Choice PT Scientific Extra Support J 300cm .014 gu [place] Sci Akron 1 [id number] 898292 713577 [id number] [facility] Scientific 3.5 X 15 balloon [place] Sci Akron 1 [id number] 026081 246181 937046 1 [id number] Flextome Scientific Cutting 3.0 X 10 balloon Holden OTW Medtronic 1 [id number] 329025 310800 365950 5 [id number] 3.0 x 15 stent Cordis 6Fr Cardinal 1 EX600 574342 065879 804815 10 [facility] Signature Audit [place] Stage Time Signature Unsigned Intra-Procedure 01/15/2017 Tia Hogan 10:14:34 AM RT(R) Signatures Monitor : Tia Hogan RT Signature : Date : Time : [place] [id number] JYOTI [place], [place] [address]
[~2017-01-15 07:49] MED LIST changes: +ALPHAGAN 0.2%5 ML EACH EYE; +COSOPT EYE DROPS5 ML LEFT EYE; +PLAVIX75 MG PO; +RENVELA800 MG PO
[2017-01-15 08:06] VITALS: BP 140/59; BMI 23.6
[2017-01-15 08:32] LABS: ANION GAP 9.8 mmol/L (8-16); CALCIUM 8.5 mg/dL (8.5-10.1); CARBON DIOXIDE 32.1 mmol/L (21.0-32.0); POTASSIUM - SERUM 3.9 mmol/L (3.5-5.1)
[2017-01-15 09:06] LABS: BASOPHILS 0.4 % (0-2); EOSINOPHILS 1.3 % (0-7); HEMATOCRIT 35.7 % (36.0-48.0); HEMOGLOBIN 11.6 g/dL (12-16); IMMATURE GRANULOCYTES 0.9 % (0-5); LYMPHOCYTES 30.2 % (15-50); MCH 28.9 pg (26.0-34.0); MCHC 32.5 g/dL (31.0-37.0); MCV 88.8 fL (80.0-100.0); MEAN PLATELET VOLUME 10.1 fL (7.4-10.4); MONOCYTES 10.1 % (2-11); NEUTROPHILS 57.1 % (40-80); PLATELET COUNT 223 10x3/uL (130-400); RBC 4.02 10x6/uL (4.00-5.40); RDW 14.3 % (11.5-14.5); WBC 4.6 10x3/uL (4.8-10.8)
--- NOTE | 2017-01-15 10:20 | NUR ---
RECIEVED TO ROOM VIA STRETCHER FROM COMPUTED TOMOGRAPHY TECHNICIAN WITH 6 FR EXOSEAL R/GROIN CDI NO BLEEDING NO HEMATOMA NOTED. REPORTS OF 2 STENTS TO THE LAD. HR 54 BP 109/47 CHEST PAIN IS DENIED
--- NOTE | 2017-01-15 10:46 | NUR ---
1045 PT SLEEPING, DRESSING TO RIGHT GROIN IS CDI, AREA IS SOFT AND NONTENDER. PEDAL PULSES PALPABLE. FOOT WARM. SINUS BRADYCARDIA ON MONITOR WITH RATE OF 52. FAMILY AT BEDSIDE, CALL LIGHT IN REACH.
--- NOTE | 2017-01-15 11:06 | NUR ---
1100 RIGHT GROIN DRESSING CDI, AREA IS SOFT AND NONTENDER. PEDAL PULSES PALPABLE. SINUS BRADYCARDIA WITH RATE OF 48. FAMILY AT BEDSIDE. CALL LIGHT IN REACH.
--- NOTE | 2017-01-15 11:30 | NUR ---
1130 RIGHT GROIN IS STABLE, WTIH NO BLEEDING OR HEMATOMA. PEDAL PULSES PALPABLE. DAUGHTER AT BEDSIDE. SINUS BRADYCARDIA.
--- NOTE | 2017-01-15 12:12 | NUR ---
1200 SINUS BRAYDCARIA, BP 98/44. RIGHT GROIN DRESSING IS CDI, AREA IS SOFT AND NONTENDER. DAUGHTER AT BEDSIDE, CALL LIGHT IN REACH.
--- NOTE | 2017-01-15 12:27 | NUR ---
1230 PT SLEEPING, DRESSING TO RIGHT GROIN IS CDI, AREA IS SOFT WITH NO HEMATOMA NOTED. SINUS BRADYCARDIA WITH RATE OF 50. BP 110/48. DAUGHTER AT BEDSIDE, CALL LIGHT IN REACH.
--- NOTE | 2017-01-15 13:01 | NUR ---
RESTING QUIETLY NO DISTRESS VSS WITH CHEST PAIN DENIED. 6 FR EXOSEAL R/GROIN CDI NO BLEEDING NO HEMATOMA NOTED
--- NOTE | 2017-01-15 13:33 | NUR ---
R/GROIN REMAINS CDI NO BLEEDING NO HEMATOMA NOTED. VSS WILL MONITOR
--- NOTE | 2017-01-15 13:41 | NUR ---
REPOSITIONED TO SITTING WITH HOB UP 30 DEGREES. 6 FR EXOSEAL R/GROIN CDI NO BLEEDING NO HEMATOMA NOTED. SANDWICH AND JUICE TO BEDSIDE
--- NOTE | 2017-01-15 13:56 | NUR ---
PIV REMOVED WITH DRESSING APPLIED R/GROIN REMAINS STABLE NO BLEEDING NOTED. CHEST PAIN IS DENIED PATIENT UP TO GET DRESSED FOR DISCHARGE HOME
--- NOTE | 2017-01-15 14:05 | NUR ---
VERBAL AND WRITTEN DISCHARGE GONE OVER WITH PATIENT AND FAMILY. ALL VERBALIZED UNDERSTANDING. R/GROIN REMAINS STABLE WITH CHEST PAIN DENIED. TRANSPORTED VIA TO PARKING FOR FAMILY TO DRIVE HOME
--- NOTE | 2017-01-18 13:09 | HP ---
PATIENT: MEG GAYTAN MEDICAL RECORD: [id number] ACCOUNT: [id number] LOCATION:[facility] : 31 ADMISSION DATE: 01/15/17 HISTORY AND PHYSICAL EXAMINATION ADMITTING DIAGNOSES: 1. Angina. 2. Coronary artery disease. 3. Recent cardiac catheterization, PTCA stent of the left circumflex with concomitant disease of the left anterior descending and chronic total occlusion of the right coronary artery. 4. Hypertension. 5. End-stage renal failure. HISTORY OF PRESENT ILLNESS: Mrs. Gaytan presents with anginal symptomatology, found to have 3-vessel coronary artery disease, total occlusion of the RCA with collaterals, significant stenosis of the LAD and left circumflex, underwent successful PTCA stent of the left circumflex, now brought back for PTCA stent of the LAD. PHYSICAL EXAMINATION: GENERAL APPEARANCE: Well-nourished, well-developed, appears stated age. Level of distress, comfortable. PSYCHIATRIC: Mental status, alert, normal affect. Orientation, oriented to time, place and person. EYES: Lids and conjunctiva, noninjected. No discharge, no pallor. ENT: Lips, teeth, gums, normal dentition. Oropharynx, no cyanosis, no pallor. NECK: Carotid arteries, bilateral normal upstroke, no bruits, no thrills. JUGULAR VEINS: No jugular venous pressure or distention. CERVICAL LYMPH NODES: Nontender, nonenlarged. THYROID: Not enlarged. Nontender. No nodules. LUNGS: Respiratory effort, unlabored. CHEST: Normal curvature. No thoracic deformity. No chest wall tenderness. Percussion, resonant. Auscultation, clear. No wheezes, no rales, no rhonchi. CARDIOVASCULAR: Precordial exam, nondisplaced. No heaves or pericardial thrills. Rate and rhythm, regular. Heart sounds, normal S1, normal S2. No S3, no gallop, no rub. Systolic murmur, not heard. Diastolic murmur, not heard. EXTREMITIES: No cyanosis, no edema. Peripheral pulses, full and equal in all extremities, except as noted. No bruits appreciated. ABDOMEN: Soft, nondistended. Normal aorta. No bruit. Nontender. No masses. Liver, nontender, no hepatomegaly. Spleen, nontender, no splenomegaly. MUSCULOSKELETAL: No joint tenderness. No joint swelling. No erythema. NEUROLOGICAL: Normal gait, normal strength, normal tone. SKIN: Warm and dry. REVIEW OF SYSTEMS: The patient reports easy bruising but reports no swollen glands. The patient reports no fever, no night sweats, no significant weight gain, no significant weight loss. No significant exercise tolerance. The patient reports no dry eyes, no irritation, no vision change. Patient reports no difficulty hearing and no ear pain. Patient reports no frequent nose bleeds or nose and sinus problems. Patient reports on arm pain on exertion. No shortness of breath while lying down. No history of heart murmur. Patient reports no cough, no wheezing or coughing up blood. Patient reports no abdominal pain, no vomiting. Normal appetite. No diarrhea and not vomiting blood. No nausea and no constipation. Patient reports no incontinence. No HISTORY AND PHYSICAL [id number] LUCILAMEG difficulty urinating. No hematuria. No increased frequency. Patient reports no muscle aches. No weakness, no arthralgias, no back pain. No swelling of the extremities. Patient reports no abnormal mole, no jaundice, no rashes. Reports no loss of consciousness. No weakness and no numbness. No seizures, dizziness, or headaches. The patient reports no depression, no sleep disturbance, feeling safe in a relationship and no alcohol abuse. Patient reports on fatigue. Reports no runny nose or sinus pressure. No itching, no hives, and no frequent sneezing. OVERALL IMPRESSION: Significant disease of the left anterior descending. We will proceed with percutaneous transluminal coronary angioplasty stent of the left anterior descending. TRANSINT:[id number] Voice Confirmation ID: [id number] DOCUMENT ID: [id number] ERICA FRANCO MD at 1309 CC: [id number] DICTATION DATE: 01/15/17 0853 RIG BUILDER: 01/15/17 1007 [facility] CLI 01/15/17 [facility] [address] [place] [address]
--- NOTE | 2017-01-18 13:09 | OP ---
PATIENT NAME: MEG GAYTAN MEDICAL RECORD: [id number] :31 LOCATION:D.CAT ADMISSION DATE: SURGEON: ERICA FRANCO MD DATE OF OPERATION: 01/15/2017 PROCEDURES: 1. PTCA stent to LAD. 2. Selective coronary angiography. INDICATION: Angina and coronary artery disease. PROCEDURE IN DETAIL: After informed consent was obtained and after detailed explanation of risks, benefits as well as alternative therapies, the patient elected to proceed with angiogram and angioplasty. The right femoral area was prepped and draped in normal sterile fashion. The right femoral artery was cannulated via modified Seldinger technique with placement of 6-Lao sheath. All catheters exchanged through this sheath. FINDINGS: The left descending has greater than 80% stenosis proximally. This would not yield with a 3.0 x 3.5 balloon, tried 3.0 cutting balloon. Stents finally went to form 3.0 x 15 mm [place] and 3.5 x 22 mm [place]. Result was 30% residual stenosis. OVERALL IMPRESSION: Successful percutaneous transluminal coronary angioplasty stent of the left anterior descending going from 80% initial stenosis to 30% residual stenosis. This heavily calcified area in the artery would not open up any further despite cutting balloon and stent balloon taken to 23 atmospheres. TRANSINT:[id number] Voice Confirmation ID: [id number] DOCUMENT ID: [id number] ERICA FRANCO MD at 1309 CC: [id number] DICTATION DATE: 01/15/17 1012 ACCOUNT RESOLUTION SPECIALIST: 01/15/17 1141 [facility] CLI 01/15/17 [place] [id number] [place] [address]
== END | disposition home or self-care (01) ==
LOC: D.CATH 07:49
PROVIDERS: Internal Medicine Interventional Cardiology
DX: I25.119 Atherosclerotic heart disease of native coronary artery with unspecified angina pectoris (principal); I12.0 Hypertensive chronic kidney disease with stage 5 chronic kidney disease or end stage renal disease; N18.6 End stage renal disease; Z01.812 Encounter for preprocedural laboratory examination; Z95.5 Presence of coronary angioplasty implant and graft

== ENCOUNTER 2017-02-16 13:15 | Inpatient (IN) | payer MEDICARE, BC ==
[~2017-02-16] VITALS: Ht 160 cm; Wt 64.5 kg
--- NOTE | ~2017-02-16 | HEMODYNAMI ---
PATIENT:MEG GAYTAN MEDICAL RECORD: [id number] : 32 [id number] ADMISSION DATE: 02/16/17 Generatedon:02/18/20174:41 Patient name: MEG GAYTAN Patient #: [id number] SSN: [id number] : 1930 Date of study: 02/18/2017 Page: Of Hemodynamic Procedure Report Patient Data Patient Demographics Procedure consent was obtained First Name: MEG Gender: Female Last Name: LUCILA : 1930 Patient #: [id number] Age: 86 year(s) Race: Black SSN: [id number] Additional ID: [id number] Contact details [address]: [address] [place] [address] [address]IVE State: [place] [facility] Zip code: [address] Past Medical History Allergies Allergen Reaction Date Comments Reported Codeine 01/08/2017 Other allergy 01/08/2017 Pneumococcal vaccine Other allergy 01/15/2017 codeine Other allergy 02/18/2017 codeine, Admission Admission Data Admission Date: 02/16/2017 Admission Time: 16:02 Admit Source: Other Room #: D.2116 Height (in.): 62.99 BSA: 1.65 (m2) Height (cm.): 160 BMI: 24.25 (kg/m2) Weight (lbs.): 136.89 Weight (kg.): 62.09 Procedure Procedure Types Cath Procedure Diagnostic Procedure LHC Coronaries only Temporary Pacemaker Intra-Aortic Balloon Pump PCI Procedure PTCA Initial Peripheral Cath Diagnostic Procedure Abd/Extremity Aortagram Procedure Description Procedure Date Procedure Date: 02/18/2017 Procedure Start Time: 3:22 Procedure End Time: 4:33 Procedure Staff Name Function Leif Brooks RN Nurse Ranjana Benitez MD Admitting Physician Ranjana Benitez MD Interpreting ecg technician Sameer Caputo MD Performing Physician Haylee Huggins RT Scrub Tia Hogan RT Monitor Procedure Data Cath Procedure Fluoroscopy Diagnostic fluoroscopy Total fluoroscopy Time: time: 14.7 min 14.7 min Diagnostic fluoroscopy Total fluoroscopy dose: 645 dose: 645 mGy mGy Contrast Material Contrast Material Type Amount (ml) Isovue 300 79 Entry Location Entry Primary Successful Side Size Upsize Upsize Entry Closure Succes sful Closure Location (Fr) 1 (Fr) 2 (Fr) Remarks Device Remarks Femoral Right 6 Fr Sheath vein Short sutured in place Femoral Right 6 Fr 7 Fr Sheath artery Short Short sutured in place Estimated blood loss: 5 ml Diagnostic catheters Device Type Used For End Catheter Placement Cordis 5Fr JL 4.0 Left Coronary Catheter (MP) Angiography Cordis 5Fr Pigtail LV Angiography Catheter (MP) Procedure Complications No complications Procedure Medications Medication Administration Route Dosage Oxygen NC 3 l/min Lidocaine 2% added to field 20 Heparin Flush Bag added to field 2 bags (1000units/500ml NS) 0.9% NaCl I.V. Heparin Bolus I.V. 6000 units Dopamine I.V. drip 10 mcg/kg/min (400mg/250ml D5W) Nitroglycerin IC/IA I.C. 50 mcg Integrilin (Bolus I.V. 5.6 ml 2mg/ml) Dopamine I.V. drip 5 mcg/kg/min (400mg/250ml D5W) Brilinta P.O. 180 mg Oxygen NRB 12 l/min Hemodynamics Rest BSA: 1.65 (m2) O2 Consumption: Estimated: 135.57 (ml/min) O2 Consumption indexed : Estimated:82.16 (ml/min/m) Heart Rate: 52 (bpm) Snapshots Pre Cath Intra NCS Post Cath Vital Signs Time Heart Resp SPO2 etCO2 NIBP Rhythm Pain Sedation Rate (ipm) (%) (mmHg) (mmHg) Status Level (bpm) 3:18:35 55 89 0 107/59(77) NSR 0 (11) 9(A) , No pain 3:23:10 70 90 0 103/62(82) NSR 0 (11) 9(A) , No pain 3:27:46 79 26 91 0 76/52(63) NSR 0 (11) 9(A) , No pain 3:32:15 80 27 86 0 77/52(56) NSR 0 (11) 9(A) , No pain 3:38:19 79 27 90 0 Disturbed NSR 0 (11) 9(A) , No pain 3:41:01 80 28 0 Disturbed NSR 0 (11) 9(A) , No pain 3:43:37 79 38 84 0 60/34(0) NSR 0 (11) 9(A) , No pain 3:46:59 79 52 90 0 Disturbed NSR 0 (11) 9(A) , No pain 3:51:58 79 34 86 0 Measuring NSR 0 (11) 9(A) , No pain 3:53:27 79 27 0 52/38(0) NSR 0 (11) 9(A) , No pain 3:58:26 78 20 89 0 62/40(0) NSR 0 (11) 9(A) , No pain 3:59:09 79 29 91 0 65/39(47) NSR 0 (11) 9(A) , No pain 4:03:35 80 24 0 79/48(65) NSR 0 (11) 9(A) , No pain 4:08:44 103 25 0 106/62(81) NSR 0 (11) 9(A) , No pain 4:13:15 79 18 90 0 120/80(97) NSR 0 (11) 9(A) , No pain 4:17:49 73 16 87 0 96/66(79) NSR 0 (11) 9(A) , No pain 4:23:09 78 27 0 73/33(42) NSR 0 (11) 9(A) , No pain 4:26:19 79 30 90 0 66/37(50) NSR 0 (11) 9(A) , No pain 4:30:47 21 91 0 70/32(58) NSR 0 (11) 9(A) , No pain Medications Time Medication Route Dose Verified Delivered Reason No alem Effectiveness by by 3:12:03 0.9% NaCl I.V. kvo ml/hr Sameer Buffie Per physician Donta Brooks RN 3:12:31 Oxygen NC 3 l/min Sameer Buffie used for Donta Brooks RN procedure 3:12:39 Lidocaine 2% added 20ml vial Sameer Sameer for local to Donta Caputo MD anesthetic field 3:12:41 Heparin Flush added 2 bags Sameer Sameer used for Bag to Donta Caputo MD procedure (1000units/500ml field NS) 3:34:48 Heparin Bolus I.V. 6000 units Sameer Buffie for ve rified Donta Brooks RN anticoagulation with dr caputo 3:40:19 Oxygen NRB 12 l/min Sameer Buffie for low 02 sats Donta Brooks RN 3:48:43 Dopamine I.V. 10 Sameer Buffie Per physician (400mg/250ml drip mcg/kg/min Donta Brooks RN D5W) 3:49:57 Nitroglycerin I.C. 50 mcg Sameer Sameer for IC/IA Donta Caputo MD vasodilation 3:57:06 Integrilin I.V. 5.6 ml Sameer Buffie for (Bolus 2mg/ml) Donta Brooks RN antiplatelet therapy 4:09:28 Dopamine I.V. 5 Sameer Buffie Per physician (400mg/250ml drip mcg/kg/min Donta Brooks RN D5W) 4:28:06 Brilinta P.O. 180 mg Sameer Monicaie for Donta Brooks RN antiplatelet therapy Procedure Log Time Note 2:54:36 Diagnostic Cath status Urgent 2:55:15 Patient Height : 62.99 inches 2:55:22 Patient Weight : 136.89 lbs 2:55:52 Time tracking: Call back 2:55:59 Plan of Care:Hemodynamics will remain stable., Cardiac rhythm will remain stable., Comfort level will be maintained., Respiratory function will remain adequate., Patient/ family verbilizes understanding of procedure., Procedure tolerated without complication., Recovers from procedure without complications.. 2:56:06 Admit Source: Other 2:56:14 Leif Brooks RN sent for patient. Start room use. 3:12:03 0.9% NaCl kvo ml/hr I.V. was administered by Leif Brooks RN; Per physician; 3:12:31 Oxygen 3 l/min NC was administered by Leif Brooks RN; used for procedure; 3:12:34 Patient received from Med II to CCL 1 Alert and oriented. Tansferred to table in Supine position. 3:12:36 Warm blankets applied, and noe hugger turned on for patient comfort. 3:12:38 Correct patient and procedure confirmed by team. 3:12:39 Lidocaine 2% 20ml vial added to field was administered by Sameer Caputo MD; for local anesthetic; 3:12:40 Signed procedure consent form obtained from patient. 3:12:41 Heparin Flush Bag (1000units/500ml NS) 2 bags added to field was administered by Sameer Caputo MD; used for procedure; 3:12:41 ECG and BP/O2 sat monitors applied to patient. 3:12:42 Vital chart was started 3:12:44 Baseline sample Acquired. 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 3:13:15 Pre-op teaching completed and patient verbalized understanding. 3:13:15 Pre-procedure instructions explained to patient. 3:13:17 Family in waiting room. 3:13:19 Patient NPO since Midnight. 3:14:05 Patient allergic to Other allergycodeine, 3:14:09 Is the patient allergic to Iodine/contrast media? No. 3:14:10 Was the patient premedicated? No 3:14:11 Is patient on blood thinner?Yes 3:14:18 ACC The patient was administered the following blood thiners within the last 24 hours: ACCHeparin 3:14:22 Patient diabetic? No. 3:14:27 Previous problem with sedation/anesthesia? No ? 3:14:30 Snore? Yes 3:14:33 Sleep apnea? No 3:14:35 Deviated septum? No 3:14:37 Opens mouth fully? Yes 3:14:38 Sticks out tongue? Yes 3:14:40 Airway obstruction? No ' 3:14:45 Dentures? No ? 3:14:49 Pre procedure: right dorsailis pedis pulse Doppler 3:14:53 Pre procedure: left dorsailis pedis pulse Doppler 3:14:57 Patient pain scale 0/10 ?. 3:15:09 IV patent on arrival in right wrist with 0.9% NaCl at [facility]. 3:15:13 Lab results completed and on chart. 3:15:18 Right groin area was prepped with chlora-prep and draped in sterile fashion 3:15:20 Sharps counted by scrub and verified by R.N. 3:15:20 Alarms reviewed by R. N. 3:15:21 Physician arrived 3:15:22 Physician arrived 3:15:23 --------ALL STOP TIME OUT------ 3:15:24 Final Timeout: patient, procedure, and site verified with staff and physician. All members of the team are in agreement. 3:15:27 Right groin site verified by team. 3:15:34 Physical assessment completed. ASA score P 2 - A patient with mild systemic disease as per Sameer Caputo MD. 3:15:38 Sedation plan: IV Moderate Sedation Versed, Fentanyl 3:19:38 Use device set Femoral Dx 3:19:39 Bag Decanter opened to sterile field. 3:19:39 Acist Syringe opened to sterile field. 3:19:40 Medline Cath Pack opened to sterile field. 3:19:41 St Phu 260cm J .035 wire opened to sterile field. 3:19:43 Acist Hand Control opened to sterile field. 3:19:44 Diagnostic Infinity 5Fr Multipack catheter opened to sterile field. 3:19:44 Acist Manifold opened to sterile field. 3:19:45 Tegaderm 4 x 4 opened to sterile field. 3:22:00 Procedure started. 3:22:05 Local anesthetic to right femoral vein with Lidocaine 2% by Sameer Caputo MD.INITIAL ACCESS ONLY 3:22:18 A 6 Fr Short sheath was inserted into the Right Femoral vein 3:22:35 Temporary pacer inserted 3:23:18 Zero performed for pressure channel P1 3:23:36 Temporary pacer turned on with the following settings: Rate 80, MA 3, Mode: Demand. 3:25:07 Terumo 6Fr Greenleaf Sheath opened to sterile field. 3:25:08 Terumo 6Fr Greenleaf Sheath opened to sterile field. 3:26:08 5Fr J Tip Temporary Pacing Catheter opened to sterile field. 3:26:10 High Pressure Extension Tubing (Donta) opened to sterile field. 3:26:57 Pastor BMW Granite 2 J-tip 300cm 0.014 guide wir opened to sterile field. 3:28:22 Local anesthetic to right femoral artery with Lidocaine 2% by Sameer Caputo MD.ADDITIONAL ACCESS 3:29:39 A 6 Fr Short sheath was inserted into the Right Femoral artery 3:30:10 A Cordis 5Fr JL 4.0 Catheter (MP) was advanced over the wire and used for Left Coronary Angiography. 3:30:28 LCA angiography performed. 3:30:31 Injector settings: Ml/sec: 3, Volume: 6, 3:32:10 Cordis 6FR XBLAD 3.5 guide catheter opened to sterile field. 3:32:16 Catheter removed. 3:32:25 6 Fr xblad 3.5 guide catheter was inserted over the wire 3:32:48 bmw wire advanced. 3:34:48 Heparin Bolus 6000 units I.V. was administered by Leif Brooks RN; for anticoagulation; verified with dr caputo 3:36:06 Wire removed. 3:36:26 whisper wire advanced. 3:36:38 Pastor Whisper J 300cm 0.014 guide wire opened to sterile field. 3:39:50 Wire advanced across lesion. 3:40:19 Oxygen 12 l/min NRB was administered by Leif Brooks RN; for low 02 sats; 3:40:57 Inflation number: 1 A Hollywood Sci Schoolcraft 2.5 X 20 balloon was prepped and advanced across the Prox LAD, then inflated to 6 ROSI for 0:10 (min:sec). 3:41:04 Inflation number: 2 The Hollywood Sci Schoolcraft 2.5 X 20 balloon was reinflated across the Prox LAD, to 8 ROSI for 0:10 (min:sec). 3:41:44 Inflation number: 3 The Hollywood Sci Schoolcraft 2.5 X 20 balloon was reinflated across the Prox LAD, to 10 ROSI for 0:10 (min:sec). 3:42:29 Inflation number: 4 The Hollywood Sci Schoolcraft 2.5 X 20 balloon was reinflated across the Prox LAD, to 12 ROSI for 0:10 (min:sec). 3:43:17 Inflation number: 5 The Hollywood Sci Schoolcraft 2.5 X 20 balloon was reinflated across the Prox LAD, to 10 ROSI for 0:10 (min:sec). 3:47:31 Pastor BMW Granite 2 J-tip 300cm 0.014 guide wir opened to sterile field. 3:48:12 whisper wire exchanged for bmw wire 3:48:43 Dopamine (400mg/250ml D5W) 10 mcg/kg/min I.V. drip was administered by Leif Brooks RN; Per physician; 3:49:57 Nitroglycerin IC/IA 50 mcg I.C. was administered by Sameer Caputo MD; for vasodilation; 3:51:52 Inflation number: 6 The Hollywood Sci Schoolcraft 2.5 X 20 balloon was reinflated across the Prox LAD, to 10 ROSI for 0:10 (min:sec). 3:52:32 Inflation number: 7 The Hollywood Sci Schoolcraft 2.5 X 20 balloon was reinflated across the Prox LAD, to 12 ROSI for 0:10 (min:sec). 3:55:46 Balloon removed over the wire. 3:56:05 Wire removed. 3:56:07 Guide catheter removed. 3:56:14 A CordFirework 5Fr Pigtail Catheter (MP) was advanced over the wire and used for LV Angiography. 3:57:06 Integrilin (Bolus 2mg/ml) 5.6 ml I.V. was administered by Leif Brooks RN; for antiplatelet therapy; 3:57:34 Abdominal Aortagram was performed. 4:00:18 Terumo 7Fr Greenleaf Sheath opened to sterile field. 4:00:19 Datascope IABP 34cm balloon catheter opened to sterile field. 4:01:10 Sheath upsized to a 7 Fr Short. 4:08:56 34cc IABP inserted into the RFA . 4:09:28 Dopamine (400mg/250ml D5W) 5 mcg/kg/min I.V. drip was administered by Leif Brooks RN; Per physician; 4:10:13 Augmentation: 1:1 per physician. 4:17:12 SUTURE SILK 2-0 BLK BR FS 18 I opened to sterile field. 4:17:12 SUTURE SILK 2-0 BLK BR FS 18 I opened to sterile field. 4:18:10 Sheath removed intact; hemostasis achieved with Sheath sutured in place to the Right Femoral vein. 4:18:17 Sheath removed intact; hemostasis achieved with Sheath sutured in place to the Right Femoral artery. 4:18:32 Procedure ended.(Physican Out) 4:19:19 Fluoroscopy time 14.70 minutes. 4:19:31 Fluoroscopy dose: 645 mGy 4:19:31 Flurop Dose total: 645 4:20:16 Contrast amount:Isovue 300 79ml. 4:20:18 Sharps counted by scrub and verified by R.N. 4:20:21 Insertion/operative site no bleeding no hematoma. 4:20:35 Post right femoral artery:stable 4:20:37 Post Procedure Pulses reassessed and unchanged 4:20:53 Post procedure rhythm: sinus rhythm , paced 4:20:56 Estimated blood loss: 5 ml 4:20:59 Post procedure instruction explained to patient.Patient verbalizes understanding. 4:21:01 Patient needs reinforcement of post procedure teaching. 4:28:06 Brilinta 180 mg P.O. was administered by Leif Brooks RN; for antiplatelet therapy; 4:33:00 Procedure type changed to Cath procedure, Diagnostic procedure, LHC, Coronaries only, Temporary Pacemaker, Intra-Aortic Balloon Pump, PCI procedure, PTCA Initial, Peripheral Cath Diagnostic Procedure, Abd/Extremity, Aortagram 4:33:02 Procedure and supply charges have been captured, reviewed, submitted and are correct. 4:33:08 Procedure Complication : No complications 4:33:12 Vital chart was stopped 4:33:13 See physician's report for complete and final results. 4:33:29 Report given to CVICU. 4:33:34 Patient transfered to CVICU with Stretcher. 4:33:38 Full Disclosure recording stopped 4:33:38 Procedure ended. 4:33:47 ACC-PCI Only Patient was given prescriptions, or instructed by Sameer Caputo MD to start/continue the following medications upon discharge: Brilinta 4:33:49 End room use (Document Last) Intervention Summary Intervention Notes Time ActionType Lesion and Equipment Action# Pressure Duration Attributes Used 3:40:57 Inflate Prox LAD Hollywood 1 6 00:10 balloon Sci Schoolcraft 2.5 X 20 balloon 3:41:04 Reinflate Prox LAD Hollywood 2 8 00:10 balloon Sci Schoolcraft 2.5 X 20 balloon 3:41:44 Reinflate Prox LAD Hollywood 3 10 00:10 balloon Sci Schoolcraft 2.5 X 20 balloon 3:42:29 Reinflate Prox LAD Hollywood 4 12 00:10 balloon Sci Schoolcraft 2.5 X 20 balloon 3:43:17 Reinflate Prox LAD Hollywood 5 10 00:10 balloon Sci Schoolcraft 2.5 X 20 balloon 3:51:52 Reinflate Prox LAD Hollywood 6 10 00:10 balloon Sci Schoolcraft 2.5 X 20 balloon 3:52:32 Reinflate Prox LAD Hollywood 7 12 00:10 balloon Sci Schoolcraft 2.5 X 20 balloon Device Usage Item Name Manufacture Quantity Catalog Number Hospital Part Current Mini mal Lot# / Charge Number Stock Stock Serial# Code Acist Acist 1 23090 367023 838513 291696 20 Syringe Medical Systems Inc Bag Microtek 1 2002S 906178 26233 101686 5 DecAssurity Group Inc. Medline Cardinal 1 [id number] 143125 08634 422[address] Phu 1 658636 528712 137755 865404 30 260cm J .035 wire Acist Hand Acist 1 73782 453221 210604 870528 5 Control Medical Systems Inc Acist Acist 1 77527 009258 692022 725141 5 Manifold Medical Systems Inc Diagnostic Cardinal 1 [id number] 395072 02934 220052 30 Infinity Health 5Fr Multipack catheter Tegaderm 4 3M 1 1626W 994285 648088 789185 5 x 4 Terumo 6Fr Terumo 2 [id number] 987293 512243 578736 40 Greenleaf Sheath 5Fr J Tip Guzman 1 [id number] 623071 65058 377360 2 Temporary Lifesciences Pacing Catheter High Merit 1 [id number] 540753 39400 446603 10 Pressure Medical Extension Tubing (Caputo) Pastor BMW Pastor 2 [id number] 942074 995905 297833 5 Granite Vascular 2 J-tip 300cm 0.014 guide wir Cordis 5Fr Cardinal 1 294196 5 JL 4.0 Health Catheter (MP) Cordis 6FR Cardinal 1 [id number] 879364 941000 647101 10 XBLAD 3.5 Health guide catheter Pastor Pastor 1 [id number] 930425 893344 624221 5 Whisper J Vascular 300cm 0.014 guide wire Hollywood Sci Hollywood 1 [id number] 059228 087476 794066 1 [id number] Schoolcraft Scientific 2.5 X 20 balloon Cordis 5Fr Cardinal 1 [id number] 5 Pigtail Health Catheter (MP) Terumo 7Fr Terumo 1 [id number] 435958 998742 488399 5 Greenleaf Sheath Datascope Datascope 1 [id number] 606651 350468 734565 1 IABP 34cm balloon catheter SUTURE Ethicon 2 685H 011422 034256 5 SILK 2-0 BLK BR FS 18 I Signature Audit Mobile Stage Time Signature Unsigned Intra-Procedure 02/18/2017 Tia Hogan 4:41:49 AM RT(R) Signatures Monitor : Tia Hogan RT Signature : Date : Time : [facility] [address] [facility] [place] [address]
[~2017-02-16 13:15] MED LIST changes: -ALPHAGAN 0.2%5 ML EACH EYE; -COSOPT EYE DROPS5 ML LEFT EYE; -RENVELA800 MG PO
[2017-02-16 13:49] LABS: BASOPHILS 0.2 % (0-2); EOSINOPHILS 0.6 % (0-7); HEMATOCRIT 35.7 % (36.0-48.0); HEMOGLOBIN 11.5 g/dL (12-16); IMMATURE GRANULOCYTES 0.4 % (0-5); LYMPHOCYTES 15.1 % (15-50); MCH 29.3 pg (26.0-34.0); MCHC 32.2 g/dL (31.0-37.0); MCV 90.8 fL (80.0-100.0); MEAN PLATELET VOLUME 10.3 fL (7.4-10.4); MONOCYTES 5.1 % (2-11); NEUTROPHILS 78.6 % (40-80); PLATELET COUNT 202 10x3/uL (130-400); RBC 3.93 10x6/uL (4.00-5.40); RDW 14.7 % (11.5-14.5); WBC 11.3 10x3/uL (4.8-10.8)
[2017-02-16 14:02] LABS: ALBUMIN 3.7 g/dL (3.4-5.0); ALKALINE PHOSPHATASE 88 U/L (46-116); ALT (SGPT) 26 U/L (10-68); BILIRUBIN - TOTAL 0.63 mg/dL (0.2-1.3); CALC OSMOLALITY 287 mosm/kg (275-300); CALCIUM 9.5 mg/dL (8.5-10.1); CHLORIDE - SERUM 96 mmol/L (98-107); CREATININE - SERUM 4.7 mg/dL (0.6-1.3); POTASSIUM - SERUM 3.8 mmol/L (3.5-5.1); PROTEIN - SERUM 7.6 g/dL (6.4-8.2); SODIUM 139 mmol/L (136-145); UREA NITROGEN 12 mg/dL (7-18); eGFR NON AFRICAN AMERICAN 9 mL/min (90-120)
[2017-02-16 14:06] LABS: GLUCOSE 272 mg/dL (74-106)
[2017-02-16 14:26] LABS: CKMB 0.5 U/L (0.0-3.6); CREATINE KINASE 55 UL (21-215); TROPONIN-I 0.026 ng/mL (0.000-0.060)
[2017-02-16 17:58] VITALS: BP 98/54; BMI 23.0
[2017-02-16] MEDS ORDERED: ALPHAGAN 0.2%5 ML EACH EYE (18:05)
[2017-02-16] MEDS ORDERED: RENVELA800 MG PO (18:05)
[2017-02-16] MEDS ORDERED: COSOPT EYE DROPS5 ML LEFT EYE (18:06)
--- NOTE | 2017-02-16 18:19 | NUR ---
RECIEVED FROM ER. AWAKE AND ORIENTED. TELEMERTY SHOWS SR WITH BBB. DENIES ANY NEEDS. CALL LIGHT IN REACH WITH SR UP
[2017-02-16 20:00] VITALS: BP 101/60; BP 106/59
--- NOTE | 2017-02-16 21:28 | NUR ---
INIITAL ROUNDS COMPLETED AT 1920 HRS. PT DENIES ANY DISCOMFORT. ASSESSMENT COMPLETED AT 2005 HRS. VSS. SR PER CM HR 74. O2 2LNC. LUNGS DIMINISHED IN BASES BILAT. IV TO R WRIST SL. LAVF WITH GOOD BRUIT AND THRILL. ALERT AND ORIETED TO PERSON, PLACE AND TIME. PM FSBS 245. 4 UNITS HUMALOG GIVEN SUB-Q TO UPPER R ARM. PM MEDS AND PM SNACK SERVED. PT CURRENTLY WATCHING TV. WILL CONTINUE TO MONITOR. SR UP X2, CALL LIGHT WITHIN REACH.
--- NOTE | 2017-02-17 00:25 | NUR ---
PT AWAKE, STATES SHE FEELS OK. REPOSITIONED IN BED FOR COMFORT. SR UP X2, CALL LIGHT WITHIN REACH.
--- NOTE | 2017-02-17 01:22 | NUR ---
PT RESTING WITH EYES CLOSED. RESP EVEN AND REGULAR. SR UP X2, CALL LIGHT WITHIN REACH.
--- NOTE | 2017-02-17 04:56 | NUR ---
ASSISTED PT TO BR WITH WALKER. PT HAD SMALL BM. BACK TO BED WITH ASSIST. PT STATED SHE WAS A LITTLE DIZZY WITH ACTIVITY. BP 92/[address] PER CM HR 103. WILL CONTINUE TO MONITOR.
[2017-02-17 05:01] VITALS: BP 92/40
--- NOTE | 2017-02-17 06:33 | NUR ---
SR WITH FREQ PAC'S HR 102. PT STATED SHE VOMITIED. SMALL AMOUNT OF YELLOW SECRETIONS NOTED IN CONTAINER. BP NOW 91/57. O2 SAT 93% ON 2LNC. AM FSBS 239. HUMALOG 4 UNITS SUB-Q TO UPPER R ARM PER S/S. NEEDS MET; WILL CONTINUE TO MONITOR.
[2017-02-17 06:38] LABS: BASOPHILS 0.1 % (0-2); EOSINOPHILS 0 % (0-7); HEMATOCRIT 35.3 % (36.0-48.0); HEMOGLOBIN 11.7 g/dL (12-16); IMMATURE GRANULOCYTES 0.4 % (0-5); LYMPHOCYTES 8.9 % (15-50); MCH 29.8 pg (26.0-34.0); MCHC 33.1 g/dL (31.0-37.0); MCV 89.8 fL (80.0-100.0); MEAN PLATELET VOLUME 10.5 fL (7.4-10.4); NEUTROPHILS 84.6 % (40-80); PLATELET COUNT 267 10x3/uL (130-400); RBC 3.93 10x6/uL (4.00-5.40); RDW 14.9 % (11.5-14.5)
[2017-02-17 06:51] LABS: HEMOGLOBIN A1C 7.2 % (4.8-6.0)
[2017-02-17 07:16] LABS: ALBUMIN 3.5 g/dL (3.4-5.0); BILIRUBIN - TOTAL 0.7 mg/dL (0.2-1.3); CALCIUM 9.3 mg/dL (8.5-10.1); CHOL - HDL RATIO 2.4 ratio (2.3-4.1); CREATININE - SERUM 5.7 mg/dL (0.6-1.3); LDL-HDL RATIO 1.1 ratio (1.5-3.5); PROTEIN - SERUM 7.1 g/dL (6.4-8.2); THYROID STIMULATING HORMONE 0.07 uIU/mL (0.36-3.74)
[2017-02-17 07:17] LABS: ANION GAP 27.1 mmol/L (8-16); CARBON DIOXIDE 20.9 mmol/L (21.0-32.0)
[2017-02-17 08:00] VITALS: BP 88/53
--- NOTE | 2017-02-17 08:05 | NUR ---
ASSESSMENT COMPLETED. TELEMERTY SHOWS UCAF AT 102. O2 AT 2 L/M PER NC. UP WITH WALKER.SL TO RIGHT HAND.. DENIES ANY NAUSEA. HOB UP FOR DIET
[2017-02-17 08:17] LABS: CKMB 279.3 U/L (0.0-3.6)
[2017-02-17 08:19] LABS: CREATINE KINASE 1720 UL (21-215)
[2017-02-17 08:22] LABS: TROPONIN-I 39.086 ng/mL (0.000-0.060)
[2017-02-17 09:38] LABS: INR 1.23 (0.85-1.17); PROTIME 15.4 SECONDS (11.6-15.0)
[2017-02-17 09:39] LABS: APTT 29.4 SECONDS (22.8-39.4)
[2017-02-17 10:17] LABS: HEMATOCRIT 37.1 % (36.0-48.0); HEMOGLOBIN 11.9 g/dL (12-16); MCH 29.2 pg (26.0-34.0); MCHC 32.1 g/dL (31.0-37.0); MCV 90.9 fL (80.0-100.0); MEAN PLATELET VOLUME 10.2 fL (7.4-10.4); PLATELET COUNT 277 10x3/uL (130-400); RBC 4.08 10x6/uL (4.00-5.40); RDW 15.3 % (11.5-14.5); WBC 15.8 10x3/uL (4.8-10.8)
[2017-02-17 10:21] LABS: PLT FUNCT.(P2Y12) PLAVIX 245 PRU (194-418)
--- NOTE | 2017-02-17 10:50 | NUR ---
ROUNDING DONE WITH PATIENT GETTING AN ULTRASOUND AT THIS TIME IN ROOM. REVIEWING CHART, CARDIAC ENZYMES ARE ELEVATED. JOSE, PRIMARY NURSE HAS MADE DR ZHAO AWARE OF THIS. ON HEART MONITOR SHOWING UCAF, HR 102.
--- NOTE | 2017-02-17 11:50 | NUR ---
HEPARIN DRIP STARTED AT 1000 UNITS AN HOUR. DENIES ANY NEEDS. FAMILY AT BEDSIDE
[2017-02-17 12:00] VITALS: BP 83/44
--- NOTE | 2017-02-17 12:56 | NUR ---
PT LYING QUIETLY WITH FAMILY AT BEDSIDE. TELEMERTY SHOWS AFIB. SR UP WITH CALL LIGHT IN REACH
--- NOTE | 2017-02-17 14:40 | NUR ---
TROPONIN ELEVATED AT 60.022. CALL PLACED TO DR ZHAO. PT C/O N PAIN. DR ZHAO SAID TO " KEEP THINGS THEY ARE FOR RIGHT NOW" PT DENIES ANY PAIN. TELEMERTY SHOWS AFIB 112
[2017-02-17 16:00] VITALS: BP 91/53
--- NOTE | 2017-02-17 16:11 | NUR ---
DR SINGH HERE. PT DENIES ANY PAIN, JUST HAS OCCASIONAL NAUSEA. TELEMERTY SHOWS A FIB. CALL LIGHT IN REACH WITH SR UP
--- NOTE | 2017-02-17 18:19 | NUR ---
FAMILY AT BEDSIDE. DENIES ANY NEEDS. ON HEPARIN DRIP. TELEMERTY SHOWS AFIB. WILL MONITOR
[2017-02-17 19:31] LABS: INR 1.74 (0.85-1.17)
[2017-02-17 19:52] LABS: PROTIME 20.3 SECONDS (11.6-15.0)
[2017-02-17 20:49] VITALS: BP 85/45
--- NOTE | 2017-02-17 22:12 | NUR ---
INITIAL ROUNDS COMPLETEDA T 1910 HRS. PT STATED SHE FELT WEAK BUT DENIES ANY PAIN. LAB CALLED AT 1930 HRS AND STATED PTT GREATER THAN 200. HEPARIN DRIP STOPPED AT THAT TIME PER PROTOCOL ASSESSMENT COMPLETED AT THAT TIME. CAF PER CM HR 95. O2 2LNC. BP 85/45. O2 SAT 100%. LUNGS DIMINISHED IN BASES BILAT. LAVF WITH GOOD BRUIT AND THRILL. REPARIN DRIP RESTATRTED AT 2039 HRS AT 700 UNITS PER HR PER S/S. IV TO R WRIST. PM FSBS 288. 6 UNITS HUMALOG GIVEN SUB-Q TO UPPER R ARM. PM MEDS ADMINISTRATED. PT CURRENTLY RESTING WITH EYES CLOSED. RESP EVEN AND REGULAR. SR UP X2, CALL LIGHT WITHIN REACH.
--- NOTE | 2017-02-17 22:37 | NUR ---
SPOKE WITH LAB REGARDING PTT. 29.4 SHOWS ON HEPARIN PROTOCOL BUT SPOKE TO ABRAHAM AND WAS TOLD THAT PTT WAS INDEED >200.
[2017-02-17 23:10] LABS: APTT > 200.0 SECONDS (22.8-39.4)
--- NOTE | 2017-02-17 23:51 | NUR ---
SBP 56 PER CN. RECHECKED BP WITH MANUAL CUFF WITH RESULTS 60/38. RADIAL PULSE WEAK. PT ANSWERS QUESTIONS APPROPRIATELY. CHERRY ANY DISCOMFORT BUT STAES SHE IS VERY TIRED. UNABLE TO GET O2 SAT EVEN WITH WARMING HAND. RAPID RESPONSE CALLED. BP NOW 73/47. FEET ELEVATED AT THIS TIME.
[2017-02-18] VITALS (89 sets, daily range): BP systolic 68–126; BP diastolic 36–78; Ht 160 cm; Wt 64.5 kg
--- NOTE | 2017-02-18 00:02 | NUR ---
FAMILY NOTIFIED OF PT'S CHANGE IN CONDITION.
--- NOTE | 2017-02-18 00:40 | NUR ---
FAMILY AT BEDSIDE. SR WITH BBB PER CM HR 79. PT ALERT, TALKING WITH FAMILY. WILL CONTINUE TO MONITOR.
--- NOTE | 2017-02-18 01:41 | NUR ---
SR WITH 1ST DEGREE AV BLOCK AND BBB HR IN 80'S. PT HAVING SPORADIC CONDUCTION CHANGES WITH HR TO 50'S -60'S AND TRANSIENT 3RD DEGREE BLOCK LASTING A FEW SECONDS THEN BACK TO SR. BP STABILIZED IN HIGH 80'S TO LOWER 90'S SYSTOLIC. PT ASYMPTOMATIC AT THIS TIME. FAMILY AT BEDSIDE.
--- NOTE | 2017-02-18 01:56 | NUR ---
DR ZHAO NOTIFIED OF PT'S HEART RHYTHM INTERMITTENT 3RD DEGREE HB LASTING 5-20 SECONDS IN BETWEEN SR WITH BBB AND 1ST DEGREE AV BLOCK RATE IN 70'S TO 80'S. DR ZHAO INFORMED THAT THE CHANGES ARE HAPPENING MORE AND MORE FREQUENTLY AND BP STAYING IN THE 70'S TO 80'S SYSTOLIC. INFORMED PT STATES SHE IS REALLY TIRED. DENIES ANY CP. NO NEW ORDERS.
--- NOTE | 2017-02-18 02:19 | NUR ---
DR ZHAO CALLED BACK. STATED TO CALL SURFACE SUPERVISOR IN FOR PT. MONITOR. TECH NOTIFIED.
--- NOTE | 2017-02-18 02:23 | NUR ---
CATH TEAM HAS BEEN NOTIFIED AND ALL HAVE RESPONDED.
--- NOTE | 2017-02-18 02:40 | NUR ---
POLE FRAMER MACHINE TEAM NOTIFIED. PT GIVEN A HIBICLENS WIPE DOWN AND GROIN CLIPPED. BP NOW 71/42. WILL CONTINUE TO MONITOR.
--- NOTE | 2017-02-18 02:53 | NUR ---
DR ZHAO HERE TO TALK WITH PT AND FAMILY. TO STOP HEPARIN TELEPHONE CLEANER TO SALES RECORD CLERK.
--- NOTE | 2017-02-18 03:04 | NUR ---
PT TO SUPERVISOR DEHYDROGENATION VIA BED.
--- NOTE | 2017-02-18 05:05 | NUR ---
PT RECVD VIA BED FROM FORKLIFT TECHNICIAN ACCOMP BY AUTO SERVICER. TRANSFERRED TO ICU BED TOTAL ASSIST. PLACED ON ICU MONITORING. SR 84, B/P 113/64 IABP INTACT TO RIGHT FEMORAL ARTERY. AUG PRESSURE 95 FLAT LYING WITH RIGHT LEG STRAIGHT. PEDAL PULSE PALP, WEAK. DOPPLER VERIFIED. NO DISTRESS AT THIS TIME. CONT CURRENT POC.
[2017-02-18 06:30] LABS: HEMATOCRIT 41.9 % (36.0-48.0); HEMOGLOBIN 12.9 g/dL (12-16); MCH 29.2 pg (26.0-34.0); MCHC 30.8 g/dL (31.0-37.0); MCV 94.8 fL (80.0-100.0); MEAN PLATELET VOLUME 11.1 fL (7.4-10.4); PLATELET COUNT 206 10x3/uL (130-400); RBC 4.42 10x6/uL (4.00-5.40); RDW 15.6 % (11.5-14.5); WBC 20.8 10x3/uL (4.8-10.8)
--- NOTE | 2017-02-18 06:30 | NUR ---
DAUGHTERS AT BEDSIDE. UPDATE GIVEN. PASSWORD SET UP. TEACHING DONE. VERBALIZED UNDERSTANDING.
[2017-02-18 06:35] LABS: ANION GAP 31.7 mmol/L (8-16); CARBON DIOXIDE 16.3 mmol/L (21.0-32.0)
[2017-02-18 06:39] LABS: CREATININE - SERUM 7.3 mg/dL (0.6-1.3)
--- NOTE | 2017-02-18 07:00 | NUR ---
PT REPORT REC'D, PT CARE ASSUMED. PT RESTING WITH EYES CLOSED, DENIES ANY PAIN UPON ASSESSMENT. ANSWERS QUESTIONS, ORIENTED X4. VSS, 15LNRB MASK. RIGHT FEMORAL IABP, DRESSING CDI. SEE IABP FLOW SHEET. PT ESRD, DENIES PRODUCING URINE, ANURIC. RIGHT HAND PIV WITH FLUIDS INFUSING, SEE FLOW SHEET. SHIFT ASSESSMENT COMPLETED, SEE FLOW SHEET. ROOM FREE OF CLUTTER, CALL LIGHT IN REACH, BED ALARM ACTIVE, PT 1:1 CARE. WILL CONTINUE TO MONITOR PT.
--- NOTE | 2017-02-18 07:30 | NUR ---
PTS DAUGHTER MARY CALLED, REC'D PASSWORD, UPDATE GIVEN, NO FURTHER QUESTIONS, WILL CONTINUE TO MIRIAM CROCKER.
[2017-02-18 07:54] LABS: EOSINOPHILS 1 % (0-7); LYMPHOCYTES 15 % (15-50); MONOCYTES 4 % (2-11); NEUTROPHILS 76 % (40-80)
[2017-02-18 07:55] LABS: PLATELET ESTIMATE NORMAL
--- NOTE | 2017-02-18 09:22 | NUR ---
CATHI ESPOSITOCLOTH DOUBLING MACHINE OPERATOR AT THE BEDSIDE
--- NOTE | 2017-02-18 11:00 | NUR ---
REPOSITIONED PT, PROPPED WITH PILLOWS, VSS, REASSESSMENT COMPLETED, SEE FLOW SHEET. ROOM FREE OF CLUTTER, CALL LIGHT IN REACH. BED ALARM ACTIVE, 1:1 NURSE CARE, WILL CONTINUE TO MONITOR PT.
--- NOTE | 2017-02-18 11:25 | NUR ---
DR. ZHAO AT THE BEDSIDE, VSS, ORDERS REC'D TO "WEAN DOPAMINE OFF, IF BEGIN TO HAVE BLOOD PRESSURE ISSUES, START DOBUTAMINE." WILL CONTINUE TO MONITOR PT.
--- NOTE | 2017-02-18 12:23 | NUR ---
* Is the patient Alert and Oriented? Yes 0 * How many steps to enter\exit or inside your home? 0 0 * PCP Dr. Chilel 0 * Pharmacy [facility] on [address] 0 * Preadmission Environment Home with Family 0 * ADLs Partial Dependent 0 * Partial ADLs (Assistance needed) Ambulation 0 * Equipment Rolling Walker 0 * List name and contact numbers for known caregivers / representatives who currently or will assist patient after discharge: Son Geo Yeung [phone] Daughter Geo Whitman [phone] Daughter - Joan Gunn [phone] 0 * Additional services required to return to the preadmission environment? Yes 0 * Can the patient safely return to the preadmission environment? Yes 0 * Has this patient been hospitalized within the prior 30 days at any hospital? No Patient Name: MEG GAYTAN Admission Status: Accout number: [id number] Admission Date: 02-16-2017 : 1930 Admission Diagnosis: Attending: MAGALIS CHILEL Current LOS: 2 Planned Disposition: Home with Home Health Primary Insurance: MEDICARE A & B Discharge Planning Comments: CM met with patient to assess dc plans/needs. Patient reports she lives at home with her son & daughter in [place] & [place]. She reports she is independent with ADL's but does use a rolling walker for mobility. At dc, she plans to return home with her family. Discussed services - she is agreeable to referral if necessary. CM will follow & assist as needed. Financial Writer: Sonam Steele
--- NOTE | 2017-02-18 12:38 | NUR ---
PTS DAUGHTER AT THE BEDSIDE, ALL QUESTIONS ANSWERED, VSS, WILL CONTINUE TO MONITOR PT.
--- NOTE | 2017-02-18 12:47 | NUR ---
DR. CASTELAN AT THE BEDSIDE, [facility], WILL CONTINUE TO MONITOR PT.
--- NOTE | 2017-02-18 13:00 | NUR ---
PTS NIBP 81/38, INCREASED DOBUTAMINE ORDERED, SEE FLOW SHEET. WILL CONTINUE TO MONITOR PT.
--- NOTE | 2017-02-18 13:08 | NUR ---
PTS DAUGHTER JUDAH AT THE BEDSIDE, ALL QUESTIONS ANSWERED, PT AND PTS DAUGHTER JUDAH AGREE "DIRECT ALL PHONE CALLS TO ME (JUDAH) UNLESS IT'S ROBERT OR LYUBOV."
--- NOTE | 2017-02-18 13:15 | NUR ---
PAGED DR. ZHAO
--- NOTE | 2017-02-18 13:28 | NUR ---
DR. ZHAO RETURNING PAGE, INFORMED OF 1315 NIBP OF 79/37 AND 1330 NIBP OF 75/40, AUGMENTED PRESSURE WAS 65, ORDERS REC'D, WILL CONTINUE TO MONITOR PT.
--- NOTE | 2017-02-18 14:08 | NUR ---
PTS DAUGHTER AT THE BEDSIDE, ALL QUESTIONS ANSWERED, VSS, WILL CONTINUE TO MONITOR PT.
--- NOTE | 2017-02-18 14:57 | NUR ---
YONATHAN EXTRACTOR OPERATOR SOLVENT PROCESS AT THE BEDSIDE, FIXING TIME ON BALLOON PUMP DUE TO DAY LIGHT SAVINGS TIME.
--- NOTE | 2017-02-18 15:00 | NUR ---
PT RESTING WITH EYES CLOSED, VSS, REASSESSMENT COMPLETED, SEE FLOW SHEET. ROOM FREE OF CLUTTER, CALL LIGHT IN REACH, WILL CONTINUE TO MONITOR PT.
--- NOTE | 2017-02-18 15:20 | NUR ---
DR. SINGH AT THE BEDSIDE, VSS. WILL CONTINUE TO MONITOR PT.
--- NOTE | 2017-02-18 15:36 | NUR ---
AUGMENTED PRESSURE DIPPING INTO 70'S, PER ORDER INCREASED LEVOPHED TO KEEP AUGMENTED PRESSURE IN 80'S.
--- NOTE | 2017-02-18 16:35 | NUR ---
PT FAMILY AT THE BEDSIDE, ALL QUESTIONS ANSWERED, WILL CONTINUE TO MONITOR PT.
--- NOTE | 2017-02-18 16:58 | NUR ---
PT FAMILY AT THE BEDSIDE, ALL QUESTIONS ANSWERED, VSS, WILL CONTINUE TO MONITOR PT.
[2017-02-19] VITALS (90 sets, daily range): BP systolic 95–134; BP diastolic 38–82
[2017-02-19 06:08] LABS: BASOPHILS 0.1 % (0-2); EOSINOPHILS 0 % (0-7); IMMATURE GRANULOCYTES 0.7 % (0-5); LYMPHOCYTES 5.6 % (15-50); MCH 29.6 pg (26.0-34.0); MCHC 33.3 g/dL (31.0-37.0); MEAN PLATELET VOLUME 10.4 fL (7.4-10.4); NEUTROPHILS 89.6 % (40-80); PLATELET COUNT 184 10x3/uL (130-400); RBC 3.71 10x6/uL (4.00-5.40); RDW 15.5 % (11.5-14.5)
[2017-02-19 06:09] LABS: MCV 88.9 fL (80.0-100.0); WBC 13.8 10x3/uL (4.8-10.8)
--- NOTE | 2017-02-19 06:27 | NUR ---
PT AWAKENS EASILY AND FOLLOWS COMMANDS. DENIES PAIN. PIV R WRIST IS PATIENT WITH NO SIGN OF COMPLICATION. HEART RYTHMN IS NOW REGULAR AND RATE IS IN MID 90'S. TPM AND IABP TO RIGHT GROIN. DRSG CDI WITH NO HEMATOMA NOTED. PT TOLERATING KEEPING LEG STRAIGHT VERY WELL. TURNED AND USED PILLOWS FOR SUPPORT REGULARLY THROUGHOUT THE NIGHT. R PEDAL PULSE IS DOPPLERABLE, L IS PALPABLE. TPM IS SET AT VVI 80. SENSING AT THIS TIME. SEE FLOWSHEET FOR IABP SETTINGS. LEVOPHED AND DOBUTAMINE HAVE BEEN WEANED DOWN AND PT IS TOLERATING WELL.
[2017-02-19 06:29] LABS: ANION GAP 22.5 mmol/L (8-16); CALCIUM 8.2 mg/dL (8.5-10.1); CARBON DIOXIDE 18.9 mmol/L (21.0-32.0); CREATININE - SERUM 8.2 mg/dL (0.6-1.3); POTASSIUM - SERUM 4.4 mmol/L (3.5-5.1)
--- NOTE | 2017-02-19 07:00 | NUR ---
PT REPORT REC'D, PT CARE ASSUMED. PT RESTING WITH EYES CLOSED, DENIES ANY PAIN UPON ASSESSMENT. RIGHT GROIN INCISION, IABP AND TPM SECURED TO GROIN, DRESSING CDI. RIGHT HAND PIV WITH FLUIDS INFUSING, SEE FLOW SHEET. VSS, ROOM AIR. SHIFT ASSESSMENT COMPLETED, SEE FLOW SHEET. ROOM FREE OF CLUTTER, CALL LIGHT IN REACH, BED ALARM ACTIVE, 1:1 NURSE CARE, WILL CONTINUE TO MONITOR PT.
--- NOTE | 2017-02-19 07:29 | NUR ---
PTS DAUGHTER JUDAH PAUL CALLED, PASSWORD RECIEVED, UPDATE GIVEN, ALL QUESTIONS ANSWERED, WILL CONTINUE TO MONITOR PT.
--- NOTE | 2017-02-19 08:18 | NUR ---
DR. ZHAO AT THE BEDSIDE, TURNED TPM DOWN FROM 80BPM TO 60BPM, WILL CONTINUE TO MONITOR PT.
--- NOTE | 2017-02-19 08:32 | NUR ---
PT FAMILY AT THE BEDSIDE, ALL QUESTIONS ANSWERED, VSS, WILL CONTINUE TO MONITOR PT.
--- NOTE | 2017-02-19 09:56 | NUR ---
DR. SINGH AT THE BEDSIDE, ALL QUESTIONS ANSWERED, VSS, WILL CONTINUE TO MONITOR PT.
--- NOTE | 2017-02-19 11:09 | NUR ---
REPOSITIONED PT, PROPPED WITH PILLOWS, VSS, ROOM AIR. REASSESSMENT COMPLETED, SEE FLOW SHEET. ROOM FREE OF CLUTTER, BED LOCKED IN LOWEST POSITION, CALL LIGHT IN REACH, WILL CONTINUE TO MONITOR PT.
--- NOTE | 2017-02-19 12:43 | NUR ---
PT FAMILY AT THE BEDSIDE, ALL QUESTIONS ANSWERED, VSS, WILL CONTINUE TO MONITOR PT.
--- NOTE | 2017-02-19 14:10 | NUR ---
DR. KRUEGER AT THE BEDSIDE
--- NOTE | 2017-02-19 15:00 | NUR ---
REPOSITIONED PT, PROPPED WITH PILLOWS. 2ND IV INSERTED TO RIGHT FOREARM, S/L'ED. REASSESSMENT COMPELTED, SEE FLOW SHEET. ROOM FREE OF CLUTTER, CALL LIGHT IN REACH, BED ALARM ACTIVE, 1:1 CARE, WILL CONTINUE TO MONITOR PT.
[2017-02-19 15:24] LABS: APPEARANCE HAZY (CLEAR); BILIRUBIN NEGATIVE (NEGATIVE); COLOR YELLOW (YELLOW); GLUCOSE 50 mg/dL (NEGATIVE); KETONE NEGATIVE (NEGATIVE); NITRITE NEGATIVE (NEGATIVE); PROTEIN TRACE mg/dL (NEGATIVE); SPECIFIC GRAVITY 1.015 (1.005-1.020); UROBILINOGEN NORMAL (NORMAL)
[2017-02-19 15:27] LABS: BACTERIA MANY /hpf (NONE SEEN); MUCUS >1+ /lpf (NONE SEEN)
[2017-02-19 15:28] LABS: RED CELLS - URINE 25-50 /hpf (0-5)
--- NOTE | 2017-02-19 17:03 | NUR ---
PT FAMILY AT THE BEDSIDE, ALL QUESTIONS ANSWERED, VSS, WILL CONTINUE TO MONITOR PT.
[2017-02-20] VITALS (96 sets, daily range): BP systolic 87–122; BP diastolic 34–98
--- NOTE | 2017-02-20 02:45 | NUR ---
DR BAXTER AND CALL RETURNED. NOTIFIED HIM OF PM FIRING INTERMITANTLY WHEN HR IS IN THE 90'S. PM SET AT VVI 60. WHEN THIS IS HAPPENING PT C/O NAUSEA AND "JUST FEELING BAD IN GENERAL" AUGMENTED PRESSURE DROPS WHEN THIS IS HAPPENING. ORDER RECIEVED TO STOP PM FOR NOW.
--- NOTE | 2017-02-20 03:24 | NUR ---
PT IS IN SINUS RYTHMN WITH HR IN 80'S AND 90'S. PM IS OFF PER ORDER AND PT IS FEELING BETTER AND CUFF BP AND AUGMENTED PRESSURE IS IMPROVED.
[2017-02-20 05:56] LABS: BASOPHILS 0.1 % (0-2); EOSINOPHILS 0.1 % (0-7); HEMATOCRIT 29.5 % (36.0-48.0); HEMOGLOBIN 9.7 g/dL (12-16); IMMATURE GRANULOCYTES 0.7 % (0-5); LYMPHOCYTES 4.9 % (15-50); MCH 28.9 pg (26.0-34.0); MCHC 32.9 g/dL (31.0-37.0); MCV 87.8 fL (80.0-100.0); MEAN PLATELET VOLUME 10.8 fL (7.4-10.4); MONOCYTES 4.4 % (2-11); NEUTROPHILS 89.8 % (40-80); PLATELET COUNT 157 10x3/uL (130-400); RBC 3.36 10x6/uL (4.00-5.40); RDW 15.4 % (11.5-14.5); WBC 13.5 10x3/uL (4.8-10.8)
[2017-02-20 05:59] LABS: ANION GAP 21.3 mmol/L (8-16); CALCIUM 7.3 mg/dL (8.5-10.1); CARBON DIOXIDE 19.4 mmol/L (21.0-32.0); CREATININE - SERUM 7.9 mg/dL (0.6-1.3); PHOSPHOROUS 5.1 mg/dL (2.5-4.9)
[2017-02-20 06:03] LABS: POTASSIUM - SERUM 3.7 mmol/L (3.5-5.1)
--- NOTE | 2017-02-20 07:00 | NUR ---
PT REPORT REC'D, PT CARE ASSUMED. PT AAOX4 IN BED, DENIES ANY PAIN UPON ASSESSMENT. RIGHT GROIN IABP AND TPM PLACEMENT, DRESSING CDI. TPM TURNED OFF PER ORDERS FROM SUDHEER GILS, ROOM AIR. RIGHT WRIST PIV WITH FLUIDS INFUSING, SEE FLOW SHEET, DRESSING CDI. RIGHT FOREARM PIV S/L'ED, DRESSING CDI. SHIFT ASSESSMENT COMPLETED, SEE FLOW SHEET. ROOM FREE OF CLUTTER, CALL LIGHT IN REACH, BED ALARM ACTIVE, PT 1:1 NURSE CARE, WILL CONTINUE TO MONITOR PT.
--- NOTE | 2017-02-20 07:48 | NUR ---
AT THE BEDSIDE, VS, WILL CONTINUE TO MONITOR PT.
--- NOTE | 2017-02-20 08:00 | NUR ---
PT BENT WRIST, RIGHT WRIST PIV CAME OUT, TIP INTACT. AUGMENTED PRESSURE DROPPED, MOVED IV FLUIDS TO RIGHT FOREARM PIV. AUGMENTED PRESSURE COMING UP, CALLED DR. ZHAO TO INFORM OF DROP IN AUMENTED PRESSURE AND COMING UP AFTER MOVING IV FLUIDS," INCREASE LEVOPHED NEEDED" WILL CONTINUE TO MONITOR PT.
--- NOTE | 2017-02-20 08:31 | NUR ---
MARY JANE BACK HANGER AT THE BEDSIDE, VSS, WILL CONTINUE TO MONITOR PT.
--- NOTE | 2017-02-20 09:11 | NUR ---
PT FAMILY AT THE BEDSIDE, ALL QUESTIONS ANSWERED, VSS, WILL CONTINUE TO MONITOR PT.
--- NOTE | 2017-02-20 09:54 | NUR ---
Nutrition Follow Up: Chart reviewed. Pt is eating 25% meal avg on a renal ADA diet. Wt gain noted - likely r/t fluid. +BM 02/17/17. Meds and labs reviewed. Rec continue current diet as tolerated. Rec consider an appetite stimulant. RD following.
--- NOTE | 2017-02-20 11:00 | NUR ---
COMPLETE BED BATH AND LINEN CHANGE. REASSESSMENT COMPLETED, SEE FLOW SHEET. ROOM FREE OF CLUTTER, CALL LIGHT IN REACH, BED ALARM ACTIVE, 1:1 NURSE CARE. WILL CONTINUE TO MONITOR PT.
[2017-02-20 11:19] LABS: HEPATITIS C ANTIBODY 0.3 (0.0-0.9)
--- NOTE | 2017-02-20 12:55 | NUR ---
PT REFUSING LUNCH TRAY, "I JUST WANT SOME CHICKEN BROTH, JUDAH IS BRINGING ME SOME SOUP." WILL CONTINUE TO MONITOR PT.
--- NOTE | 2017-02-20 13:45 | NUR ---
PTS DAUGHTER AT THE BEDSIDE, ALL QUESTIONS ANSWERED, VSS, WILL CONTINUE TO MONITOR PT.
--- NOTE | 2017-02-20 14:15 | NUR ---
NEW IV SITED TO RIGHT WRIST, FLUSHES WELL, DRESSING APPLIED, SECURED TO ARM. WILL CONTINUE TO MONITOR PT.
[2017-02-20 14:47] LABS: INR 1.39 (0.85-1.17)
--- NOTE | 2017-02-20 15:03 | NUR ---
CHANGED IABP FROM 1:1 TO 1:[address] ZHAO, WILL CONTINUE TO MONITOR PT.
--- NOTE | 2017-02-20 15:54 | NUR ---
KB BARAJAS WITH DIALYSIS AT THE BEDSIDE SETTING UP.
--- NOTE | 2017-02-20 16:00 | NUR ---
DR. ZHAO AT THE BEDSIDE, DC'ED TPM WIRES. DC'ED VENOUS SHEATH, PRESSURE APPLIED, 4X4'S APPLIED, DRESSING CHANGED, PT TOLERATED WELL, WILL CONTINUE TO MONITOR PT.
--- NOTE | 2017-02-20 17:05 | NUR ---
DR. FERGUSON AT THE BEDSIDE, SPEAKING WITH FAMILY, ALL QUESTIONS ANSWERED, VSS, DIALYSIS AT THE BEDSIDE, WILL CONTINUE TO MONITOR PT.
--- NOTE | 2017-02-20 18:10 | NUR ---
DR. SINGH AT THE BEDSIDE, ALL QUESTIONS ANSWERED, VSS. DIALYSIS AT THE BEDSIDE, WILL CONTINUE TO MONITOR PT.
--- NOTE | 2017-02-20 19:00 | NUR ---
PT AOX4. RESPIRATIONS UNLABORED, LUNG SOUNDS CLEAR. IABP TO RIGHT GROIN, SECURED WITH DRSG CDI. RADIAL PULSES PALPABLE, LT PEDAL PULSE PALPABLE, RT PEDAL PULSE PRESENT VIA DOPPLER. PT UNDERSTANDS AND TOLERATES KEEPING RT LEG STRAIGHT WITHOUT ANY DIFFICULTY AT THIS TIME. LT ARM FISTULA, DIALYSIS AT BEDSIDE AT THIS TIME, TOLERATING WELL, VSS, NO C/O PAIN. DENIES NEEDS AT THIS TIME. ROOM VISIBLE FROM NURSES STATION. CPOC.
--- NOTE | 2017-02-20 20:19 | NUR ---
Mrs. Hamilton had bedside hemodialysis today via her left upper arm av graft from 1651 until 1951. Average blood flow was 400 mls/minute. Used a 3.5 k/ 2.5 calcium bath. Net fluid removed was 1000 mls as ordered. No problems, stable treatment. Post vital signs were: B/P: 105/55, HR: 93, Temp: 97.6, Resps 23.
--- NOTE | 2017-02-20 20:45 | NUR ---
HS MEDS GIVEN. NO VISITORS AT THIS TIME. NO C/O PAIN. VSS, LEVOPHED AND DOBUTAMINE GTTS INFUSING, SEE IV FLOWSHEET FOR DETAILS. DENIES NEEDS. CALL LIGHT WITHIN PT REACH. CPOC.
--- NOTE | 2017-02-20 23:00 | NUR ---
REASSESSMENT COMPLETE, SEE FLOWSHEET FOR ALL FINDINGS. NO ACUTE CHANGES NOTED AT THIS TIME. PT RESTING QUIETLY WITH RESPIRATIONS UNLABORED. VSS, NO C/O PAIN AT THIS TIME. IABP SECURED, RT GROIN WITH NO S/S OF HEMATOMA AT THIS TIME. RIGHT PEDAL PULSE PRESENT VIA DOPPLER. DENIES FURTHER NEEDS. CALL LIGHT WITHIN PT REACH. CPOC.
--- NOTE | 2017-02-20 23:30 | NUR ---
REASSESSMENT COMPLETE, SEE FLOWSHEET FOR ALL FINDINGS. NO NEW CHANGES AT THIS TIME. PT REPOSITIONED FOR COMFORT WITH PARTIAL LINEN CHANGE COMPLETE. VSS, NO C/O PAIN AT THIS TIME. EPIDURAL INTACT. COUGH/DB WITH GOOD EFFORT. I.S. COMPLETED PULLING UP TO 1250 X 10. DENIES FURTHER NEEDS AT THIS TIME. CALL LIGHT AND BEDSIDE TABLE WITHIN PT REACH. CPOC.
[2017-02-21] VITALS (87 sets, daily range): BP systolic 83–124; BP diastolic 41–61
[2017-02-21 00:58] LABS: HEMATOCRIT 33.1 % (36.0-48.0); MCH 28.9 pg (26.0-34.0); MCHC 33.2 g/dL (31.0-37.0); MCV 86.9 fL (80.0-100.0); MEAN PLATELET VOLUME 10.8 fL (7.4-10.4); RBC 3.81 10x6/uL (4.00-5.40); RDW 15.3 % (11.5-14.5); WBC 16.5 10x3/uL (4.8-10.8)
--- NOTE | 2017-02-21 01:00 | NUR ---
PT RESTING QUIETLY AT THIS TIME WITH NO S/S OF PAIN. VSS, WILL CONTINUE TO MONITOR.
--- NOTE | 2017-02-21 03:00 | NUR ---
REASSESSMENT COMPLETE, NO NEW CHANGES AT THIS TIME. PT REPOSITIONED FOR COMFORT. RT LEG STRAIGHT. PERIPHERAL PULSES PRESENT. DENIES NEEDS. CALL LIGHT WITHIN PT REACH. CPOC.
[2017-02-21 03:48] LABS: BASOPHILS 0.1 % (0-2); EOSINOPHILS 0.1 % (0-7); HEMATOCRIT 31.5 % (36.0-48.0); HEMOGLOBIN 10.6 g/dL (12-16); IMMATURE GRANULOCYTES 1.2 % (0-5); LYMPHOCYTES 6.5 % (15-50); MCH 29.4 pg (26.0-34.0); MCHC 33.7 g/dL (31.0-37.0); MCV 87.3 fL (80.0-100.0); MONOCYTES 6.6 % (2-11); NEUTROPHILS 85.5 % (40-80); PLATELET COUNT 174 10x3/uL (130-400); RBC 3.61 10x6/uL (4.00-5.40); RDW 15.3 % (11.5-14.5); WBC 15.1 10x3/uL (4.8-10.8)
[2017-02-21 04:04] LABS: ANION GAP 17.4 mmol/L (8-16); CALCIUM 8.2 mg/dL (8.5-10.1); POTASSIUM - SERUM 3.8 mmol/L (3.5-5.1)
[2017-02-21 04:07] LABS: CARBON DIOXIDE 24.4 mmol/L (21.0-32.0); CREATININE - SERUM 4.7 mg/dL (0.6-1.3); PHOSPHOROUS 3.2 mg/dL (2.5-4.9)
--- NOTE | 2017-02-21 05:00 | NUR ---
PT RESTING QUIETLY WITH EYES CLOSED AND UNLABORED RESPIRATIONS. VSS. NO S/S OF PAIN AT THIS TIME. CALL LIGHT WITHIN PT REACH. CPOC.
--- NOTE | 2017-02-21 07:00 | NUR ---
REC'D CARE OF PT. A&O X3. RIGHT FOREARM PIV. CD&I. WITH LEVOPHED AT 12 MCG BEING TITRATED TO EFFECT TO KEEP AUGMENTED BP > 80. BP WITHIN ESTABLISHED PARAMETERS AT THIS TIME.DOBUTAMINE INFUSING AT SET RATE OF 2.5 MCG. LEVO AND DOBUT ARE INFUSING VIA 3 PRONG ADAPTER. RIGHT WRIST PIV WITH NS AT KVO AND HEPARING AT 500 UNITS PER HOUR. INFUSING VIA THREE PRONG ADAPTER. UPPER PPP BUT WEAK. LOWER PPP. PEDAL AND POST TIBIAL BILATERALLY. IABP HEARD WHEN TRYING TO AUSCULTATE LUNGS. CLEAR THE BEST I CAN TELL. RIGHT GROIN IABP SITE. DRSG CD&I. IABP 1:2. NO BLOOD IN TUBING SEEN. DENIES NEEDS AT THIS TIME. CLWR. CPOC.
--- NOTE | 2017-02-21 08:00 | NUR ---
THEO SCHAFFER. REMINDED HER TO KEEP RIGHT LEG STRAIGHT.
--- NOTE | 2017-02-21 09:31 | NUR ---
DAUGHTER AT BEDSIDE UPDATED.
--- NOTE | 2017-02-21 09:32 | NUR ---
NO S/S OF BLEEDING AT RIGHT GROIN IABP SITE.
--- NOTE | 2017-02-21 10:28 | NUR ---
AUGMENTED BP 117. REDUCED LEVOPHED TO 6 MCG FROM 12 MCG.
--- NOTE | 2017-02-21 10:55 | NUR ---
ON AND OFF OF BEDPAN. HAD 10CC CLOUDY URINE.
--- NOTE | 2017-02-21 10:56 | NUR ---
REASSESSMENT COMPLETED PER FLOW SHEET. UPPER EXT PPP BUT WEAK. LOWER EXT PPD. RIGHT GROING IABP SITE. CD&I. REMINDED TO KEEP RIGHT LEG STRAIGHT. VERBALIZES UNDERSTANDING. LEVOPHED BEING TITRATED TO EFFECT. DPBUTAMINE REMAIONS ON AT SET RATE OF 2.5 MCG.CLWR. CPOC.
--- NOTE | 2017-02-21 12:23 | NUR ---
ON AND OFF OF BEDPAN. HAD LARGE SEMIFORMED BROWN STOOL. BATHED AND LINEN CHANGED. PERICARE PERFORMED.
--- NOTE | 2017-02-21 12:30 | NUR ---
REFUSED LUNCH TRAY
--- NOTE | 2017-02-21 13:30 | NUR ---
FRIEND AT BEDSIDE. UPDATED BY PTKirk
--- NOTE | 2017-02-21 14:12 | NUR ---
NO COMPLAINTS, NO NEEDS, NO DISTRESS. CLWR. TOLD HER TO LET ME KNOW IF SHE NEEDED ANYTHING. ASKED FOR H20, OBLIGED.
--- NOTE | 2017-02-21 14:57 | NUR ---
DAUGHTER AT BEDSIDE. SHE BROUGHT BROCCOLI PER PT. REQUEST. ASKED FOR CRANBERRY JUICE. OBLIGED.
--- NOTE | 2017-02-21 16:23 | NUR ---
DR. FERGUSON AT BEDSIDE.
--- NOTE | 2017-02-21 16:34 | NUR ---
DR. ZHAO AT BEDSIDE. ORDERS REC'D TO CHANGE IABP TO 1:3. DONE.
--- NOTE | 2017-02-21 17:28 | NUR ---
REFUSED DINNER TRAY
--- NOTE | 2017-02-21 18:56 | NUR ---
REMAINS ON IABP, 1:3. RESTING WITH EYES CLOSED. DENIES NEEDS. VSS. BEING SUPPORTED WITH LEVOPHED.
--- NOTE | 2017-02-21 19:00 | NUR ---
Received patient resting in bed with eyes open, assessment completed per flowsheet. Patient AO x4, pleasant and calm demeanor. Eyes PERRLA @ 4mm with brisk response, sclera is clear/white. S1/S2 noted NSR with 1st degree block on telemetry with HR 96, rythmic and regular. IABP in use 1:3, good waveform with helium approx 80%. Breathing is even and unlabored on 2L via NC with O2 sat 96%, lung sounds clear bilateral upper and mid with diminished lower. Abdomen is soft and flat with bowel sounds active x4, non-tender. R groin insertion site dressing CDI, no swelling/bleeding noted at site. Patient anuric. Full ROM all extremities with weakness noted, Upper pulses weak with lower pulses detected by doppler. Skin warm/dry to touch with cap refill < 3 sec. R wrist/R forearm PIV dressing CDI, see flowsheet for fluids. Patient denies pain at this time, repositioned for comfort. All VSS and will continue to monitor.
--- NOTE | 2017-02-21 20:00 | NUR ---
Patient requested bedpan, 125ml concentrated yellow urine noted. No complaints at this time, all VSS and will continue to monitor.
--- NOTE | 2017-02-21 21:00 | NUR ---
No visitors at this time, all HS meds given without difficulty. L upper arm fistula dressing CDI, thrill/bruit noted. R groin insertion site dressing CDI, no bleeding/drainage noted. Patient repositioned for comfort, no further needs at this time. All VSS and will continue to monitor.
--- NOTE | 2017-02-21 23:00 | NUR ---
Reassessment completed per flowsheet, patient resting in bed with eyes closed. S1/S2 noted NSR with 1st degree block on telemetry and HR 88, rhythmic and regular. IABP 1:3 in use, good waveform with helium approx. 75%. Breathing is even and unlabored on room air with O2 sat 100%, lung sounds clear bilateral upper and mid with diminished lower. R groin insertion site dressing CDI, no swelling/bleeding noted. Upper pulses weak palpable with lower detected with doppler, cap refill < 3 sec with skin warm/dry. Patient repositioned for comfort, denies pain or other needs at this time. All VSS and will continue to monitor.
[2017-02-22] VITALS (96 sets, daily range): BP systolic 70–114; BP diastolic 36–62
--- NOTE | 2017-02-22 00:25 | NUR ---
Lab at bedside for Hemogram, collected without difficulty.
--- NOTE | 2017-02-22 00:30 | NUR ---
Patient noted to have occaisional PVC's and conduction changes on EKG, 1st dergree block noted. Will continue to monitor.
--- NOTE | 2017-02-22 01:00 | NUR ---
Patient requested bedpan, 75ml concentrated yellow urine. Repositioned for comfort, denies further needs at this time. All VSS and will continue to monitor.
[2017-02-22 01:01] LABS: HEMATOCRIT 31.6 % (36.0-48.0); HEMOGLOBIN 10.3 g/dL (12-16); MCH 29.3 pg (26.0-34.0); MCHC 32.6 g/dL (31.0-37.0); MEAN PLATELET VOLUME 10.9 fL (7.4-10.4); RBC 3.51 10x6/uL (4.00-5.40); RDW 15.6 % (11.5-14.5); WBC 11.6 10x3/uL (4.8-10.8)
--- NOTE | 2017-02-22 02:30 | NUR ---
Spoke to patient family via phone, password given and verified. Discussed patient current condition, informed family that the patient stated "she felt better". All questions answered to satisfaction, no further nquestions at this time.
--- NOTE | 2017-02-22 03:00 | NUR ---
Reassessment completed per flowsheet, patient resting in bed with eyes closed. Patient AO x4, calm and cooperative. S1/S2 noted with HR 89 with 1st degree block, occasional PVC, and conduction changes noted on telemetry. Upper pulses weak with lower pulses detected by doppler, cap refill < 3 sec with skin warm/dry to touch. Breathing is even and unlabored on room air with O2 sat 100%, lung sounds clear bilateral upper and mid with diminished lower. IABP settings unchanged, good waveform with helium tank 75%. R groin incision dressing CDI, no swelling/bleeding noted and non-tender to palpation. Patient denies pain or other needs at this time, repositioned for comfort. All VSS and will continue to monitor.
[2017-02-22 04:57] LABS: BASOPHILS 0.1 % (0-2); EOSINOPHILS 0.7 % (0-7); HEMATOCRIT 30.8 % (36.0-48.0); HEMOGLOBIN 10.2 g/dL (12-16); IMMATURE GRANULOCYTES 1.9 % (0-5); LYMPHOCYTES 9.3 % (15-50); MCH 29.5 pg (26.0-34.0); MCHC 33.1 g/dL (31.0-37.0); MEAN PLATELET VOLUME 10.7 fL (7.4-10.4); MONOCYTES 7.9 % (2-11); NEUTROPHILS 80.1 % (40-80); PLATELET COUNT 168 10x3/uL (130-400); RBC 3.46 10x6/uL (4.00-5.40); RDW 15.3 % (11.5-14.5); WBC 10.7 10x3/uL (4.8-10.8)
--- NOTE | 2017-02-22 05:00 | NUR ---
AM Labs collected without difficulty, patient resting in bed with eyes open. Occasional PVC noted on telemetry with conduction changes noted, IABP settings unchanged. R groin insertion site dressing CDI, no bleeding/drainage noted. Patient denies pain or other needs at this time, repositioned for comfort. All VSS and will continue to monitor.
[2017-02-22 05:14] LABS: ANION GAP 16.4 mmol/L (8-16); CALCIUM 7.9 mg/dL (8.5-10.1); CREATININE - SERUM 5.5 mg/dL (0.6-1.3); PHOSPHOROUS 3.7 mg/dL (2.5-4.9); POTASSIUM - SERUM 3.4 mmol/L (3.5-5.1)
--- NOTE | 2017-02-22 07:59 | NUR ---
Shift report has been received. Assessment complete. Pt assisted up to toilet and then to chair at bedside. Breakfast tray provided. Denies any other needs at this time. Call light in reach.
--- NOTE | 2017-02-22 08:00 | NUR ---
Shift report received. Assessment complete. Pt awakens and conversant. Back to sleep. Balloon pump setting 1:3 Dobutamine infusing at set rate of 4.6ml/hr (2.5mcg/kg/min), Norepinephrine 9.4ml/hr (5mcg/min), NS at 5ml/hr, Heparin at 5 units/hr. Dr Longo has been by to see patient. Wants echo done this morning. Will decide to remove IABP after review. Daughter has called to check on patient, will be in later this AM to see her.
--- NOTE | 2017-02-22 09:24 | NUR ---
Patient Name: MEG GAYTAN Encounter No: [id number] : 1930 Primary Insurance: MEDICARE A & B Planned Disposition: Home with Home Health DCP follow-up note: Patient will resume outpatient HD on MWF @ 0630 @ [facility]. Patient and family in agreement with discharge plan. No changes to plan. Case management will follow and assist as needed. Sonam Steele
--- NOTE | 2017-02-22 09:33 | NUR ---
Daughter at bedside. Pt did not want her breakfast tray. Grits ordered per patient request. Pt has been repositioned.
--- NOTE | 2017-02-22 10:43 | NUR ---
Full bath provided while daughter still at bedside. Complete linen change. Dressing to right groin was displaced and catheter at insertion exposed. Site cleaned with chlorhexadine and covered with gauze and tegaderm.
--- NOTE | 2017-02-22 11:30 | NUR ---
Pt resting quietly at this time. Lights off, TV off. No distress noted.
--- NOTE | 2017-02-22 12:01 | NUR ---
Dr Chilel at bedside, speaking with family. Pt being assisted with lunch tray.
--- NOTE | 2017-02-22 12:25 | NUR ---
Nutrition Follow Up: Pt was asleep at the time of RD visit. Interview deferred. Pt is eating 26% meal avg on a renal ADA diet. +BM 02/21/17. Wt stable. Meds and labs reviewed. Pt continues with very poor po intake. Pt is not meeting est nutritional needs. Rec consider liberalizing diet to encourage po intake. Rec an appetite stimulant. RD following.
--- NOTE | 2017-02-22 12:58 | NUR ---
Pt cleaned up from bowel movement. Family has left. Pt wishes to rest at this time.
--- NOTE | 2017-02-22 13:01 | NUR ---
Dialysis nurse at bedside to set up for treatment.
--- NOTE | 2017-02-22 13:59 | NUR ---
Ludy at bedside at this time. Pt has been accessed for dialysis. Norepinephrine adjusted to maintain blood pressure for dialysis.
--- NOTE | 2017-02-22 14:10 | NUR ---
Pt cleaned up from bowel movement.
--- NOTE | 2017-02-22 14:45 | NUR ---
Dr Longo called to see what patient BP running. Let him know had to go up on Levophed to keep pressures up enough to do dialysis. Echo currently in progress. Says will leave IABP at 1:3 through the night and will come up tomorrow to assess. Worried with getting dialysis and having to have increased Levophed that she may become distressed in the night. Will continue to monitor
--- NOTE | 2017-02-22 16:25 | NUR ---
Pt cleaned up from bowel movement.
--- NOTE | 2017-02-22 17:13 | NUR ---
Pt placed back on bedpan. Says stomach is cramping. Dialysis is complete. Have started to wean Levophed.
--- NOTE | 2017-02-22 17:14 | NUR ---
Mrs. Hamilton had bedside hemodialysis today from 1351 until 165 via her left upper arm av graft. Average blood flow was 400 mls/minute. Net fluid removed was 1000 mls. Stable treatment. Did require a little additional increase in her levophed due to hypotension. Post vital signs were: B/P: 103/44, HR: 87, Temp: 97.6, Resps: 16.
--- NOTE | 2017-02-22 17:41 | NUR ---
Pt has been cleaned up from bowel movement. Loose stool. Partial bedding change provided. Repositioned for comfort. Dinner tray offered. Pt not interested in eating at this time, wants to wait until her daughter comes.
--- NOTE | 2017-02-22 18:17 | NUR ---
Family at bedside, have brought soup for patient to eat for dinner. Update provided and all questions answered.
--- NOTE | 2017-02-22 18:36 | NUR ---
Pt had loose bowel movement. Applied butt paste. Family still at bedside.
--- NOTE | 2017-02-22 19:00 | NUR ---
PT SLEEPING UPON ENTERING ROOM, AROUSES EASILY, AOX4. DENIES PAIN AT THIS TIME. RESPIRATIONS UNLABORED, LUNG SOUNDS CLEAR. TACHYCARDIC ON MONITOR. PERIPHERAL PULSES PRESENT, PEDAL PULSES VIA DOPPLER. IABP PRESENT TO RT GROIN, DRSG CDI, 1:3. RT LEG STRAIGHT, PT TOLERATES KEEPING LEG STRAIGHT WELL. BOWEL SOUNDS ACTIVE IN ALL QUADRANTS. VSS, LEVOPHED INFUSING @ 6.5 MCG/MIN, WILL TITRATE TOLERATED. PT REPOSITIONED FOR COMFORT. DENIES FURTHER NEEDS AT THIS TIME. CALL LIGHT WITHIN PT REACH. CPOC.
--- NOTE | 2017-02-22 21:15 | NUR ---
HS MEDS GIVEN, FRESH WATER TO BEDSIDE. VSS, NO C/O PAIN AT THIS TIME. REPOSITIONED FOR COMFORT. NO VISITORS AT THIS TIME. CALL LIGHT WITHIN PT REACH. CPOC.
--- NOTE | 2017-02-22 22:40 | NUR ---
SMALL LIQUID BM NOTED, PARTIAL LINEN CHANGE AND BATH PROVIDED.
--- NOTE | 2017-02-22 23:00 | NUR ---
REASSESSMENT COMPLETE, NO NEW CHANGES AT THIS TIME. PT RESTING QUIELTY WITH NO C/O PAIN. LEVOPHED REMAINS INFUSING AT 6.5MCG/MIN, SBP 80-90. PT REPOSITIONED FOR COMFORT. RT LEG STRAIGHT. DENIES FURTHER NEEDS AT THIS TIME. CALL LIGHT AND BEDSIDE TABLE WITHIN PT REACH. CPOC.
[2017-02-23] VITALS (66 sets, daily range): BP systolic 81–111; BP diastolic 40–55
--- NOTE | 2017-02-23 01:00 | NUR ---
RESTING QUIETLY AT THIS TIME. NO S/S OF PAIN OR DISTRESS. CALL LIGHT WITHIN PT REACH. CPOC.
[2017-02-23 01:11] LABS: HEMATOCRIT 31.4 % (36.0-48.0); HEMOGLOBIN 10.2 g/dL (12-16); MCH 29.1 pg (26.0-34.0); MCHC 32.5 g/dL (31.0-37.0); MCV 89.5 fL (80.0-100.0); MEAN PLATELET VOLUME 10.9 fL (7.4-10.4); RBC 3.51 10x6/uL (4.00-5.40); RDW 15.5 % (11.5-14.5)
--- NOTE | 2017-02-23 03:00 | NUR ---
REASSESSMENT COMPLETE, NO NEW CHANGES AT THIS TIME. IABP SECURED TO RIGHT GROIN. PEDAL PULSES PRESENT VIA DOPPLER. LEVOPHED GTT INFUSING. PT REPOSITIONED FOR COMFORT. DENIES PAIN. CALL LIGHT WITHIN PT REACH. CPOC.
[2017-02-23 05:50] LABS: BASOPHILS 0.2 % (0-2); EOSINOPHILS 1.5 % (0-7); HEMATOCRIT 31.6 % (36.0-48.0); HEMOGLOBIN 10.3 g/dL (12-16); IMMATURE GRANULOCYTES 6.7 % (0-5); LYMPHOCYTES 9.5 % (15-50); MCH 29.3 pg (26.0-34.0); MCHC 32.6 g/dL (31.0-37.0); MCV 89.8 fL (80.0-100.0); MEAN PLATELET VOLUME 11.2 fL (7.4-10.4); MONOCYTES 8.9 % (2-11); NEUTROPHILS 73.2 % (40-80); PLATELET COUNT 200 10x3/uL (130-400); RBC 3.52 10x6/uL (4.00-5.40); RDW 15.8 % (11.5-14.5); WBC 8.7 10x3/uL (4.8-10.8)
[2017-02-23 06:11] LABS: ANION GAP 19.2 mmol/L (8-16); CALCIUM 8.2 mg/dL (8.5-10.1); CARBON DIOXIDE 25.2 mmol/L (21.0-32.0); PHOSPHOROUS 2.9 mg/dL (2.5-4.9); POTASSIUM - SERUM 3.4 mmol/L (3.5-5.1)
[2017-02-23 06:20] LABS: CREATININE - SERUM 3.5 mg/dL (0.6-1.3)
--- NOTE | 2017-02-23 08:30 | NUR ---
ASSESSMENT COMPLETED. ALERT AND ORIENTED TO PERSON, PLACE AND TIME. ON RA, NEL LUNGS CLEAR. LT AV FISTULA WITH BRUIT AND THRILL. RT WRIST PIV WITH HEPARIN AT 500UNITS/HR VIA PUMP. RT FA PIV, SITE WITHOUT REDNESS OR EDEMA WITH DOBUTAMINE @ 2.5 MCG/KG/MIN = 4.6CC/HR VIA PUMP AND LEVOPHED @ 5 MCG/KG/MIN = 9.4 CC/HR VIA PUMP. IABP TO RT GROIN @ 1:3, SEE FLOW SHEET. 1ST DEGREE AVB ON THE MONITOR. DENIES ANY PAIN OR NEEDS AT THIS TIME.
--- NOTE | 2017-02-23 08:45 | NUR ---
DAUGHTER AT BEDSIDE. UPDATE GIVEN.
--- NOTE | 2017-02-23 09:00 | NUR ---
DR TREVINO HERE TO SEE. HEPARIN DC'D. WILL PULL IABP IN 1 HOUR.
--- NOTE | 2017-02-23 10:30 | NUR ---
FAMILY AT BEDSIDE. UPDATE GIVEN. WAITING FOR DR TREVINO AND OPERATOR/ASSISTANT FOREMAN TO PULL IABP
--- NOTE | 2017-02-23 10:55 | NUR ---
HAD SMALL LIQUID BM.
--- NOTE | 2017-02-23 11:06 | NUR ---
DR TREVINO AT BEDSIDE. IABP PULLED. PRESSURE HELD TO RT GROIN PER GROCERY CLERK STOCKING. TOLLERATED WELL. WILL CONT TO MONITOR.
--- NOTE | 2017-02-23 11:57 | NUR ---
REC'D CARE OF PT.
--- NOTE | 2017-02-23 11:58 | NUR ---
DC'D IABP SITE CD&I. NO S/S OF BLEEDING OR HEMATOMA.
--- NOTE | 2017-02-23 11:59 | NUR ---
DENIES NEEDS. DAUGHTER AT BEDSIDE. UPDATED.
--- NOTE | 2017-02-23 12:28 | NUR ---
LUNCH TRAY SERVED
--- NOTE | 2017-02-23 12:30 | NUR ---
ON AND OFF OF BEDPAN. HAD 100 CC OF GREEN LIQUID STOOL. BATHED. PERICARE PERFORMED AND LINEN CHANGED.
--- NOTE | 2017-02-23 12:32 | NUR ---
NO S/S OF BLEEDING AT DC'D RIGHT GROIN IABP SITE.
--- NOTE | 2017-02-23 16:31 | NUR ---
DR. TREVINO AT BEDSIDE. ORDERS REC'D TO START CORDORONE AT 1 MG/MIN AND TO LEAVE AT 1 MG/MIN.
--- NOTE | 2017-02-23 17:00 | NUR ---
ON AND OFF OF BEDPAN. HAD SMALL LIQUID GREEN STOOL.
--- NOTE | 2017-02-23 17:15 | NUR ---
V-T[facility]. CODE CALLED.
--- NOTE | 2017-02-23 17:25 | NUR ---
ROLO, DAUGHTER CALLED AND UPDATED ABOUT THEY NEED TO GET TO THE HOSPITAL BECAUSE PT. HAS TOOK A TURN FOR THE WORSE.
--- NOTE | 2017-02-23 17:26 | NUR ---
DR. TREVINO PAGED AND UPDATED ABOUT PT. CODING. ORDERS REC'D FOR CORDORONE 300 MG IVP X1 NOW. ORDERS RELAYED TO DORA TIERNEYSITE SUPERVISING TECHNICAL OPERATOR I WAS WATCHING DR. VARELA'S 1:1.
--- NOTE | 2017-02-23 18:09 | NUR ---
KASSANDRA WITH DR. CASTELAN'S OFFICE NOTIFIED AND UPDATED.
--- NOTE | 2017-02-23 18:18 | NUR ---
DR. SINGH PAGED AND SPOKE WITH. UPDATED ABOUT PT. EXPIRING.
--- NOTE | 2017-02-23 18:19 | NUR ---
SEE CODE PAPER WORK FILLED OUT BY DORA LEMUS BOOK ILLUSTRATOR.
--- NOTE | 2017-02-23 19:14 | NUR ---
PERSONAL BELONGINGS OF GLOVE AND UNDERWEAR GAVE TO LISETTE, PTS. DAUGHTER.
== END 2017-02-23 17:32 | DRG 270 ==
LOC: D.ER 13:15 → D.CVICU 16:02 → D.M2 16:02 → D.CVICU 02-18 05:17
PROVIDERS: Emergency Medicine; Internal Medicine; Internal Medicine Cardiovascular Disease; Internal Medicine Nephrology; ADMIT Family Medicine
PROC: 5A1223Z Performance of Cardiac Pacing, Continuous (ICD-10-PCS; 2017-02-18)
PROC: 02703ZZ Dilation of Coronary Artery, One Artery, Percutaneous Approach (ICD-10-PCS; principal; 2017-02-18 02:56)
PROC: 5A02210 Assistance with Cardiac Output using Balloon Pump, Continuous (ICD-10-PCS; 2017-02-18 02:56)
PROC: 4A023N7 Measurement of Cardiac Sampling and Pressure, Left Heart, Percutaneous Approach (ICD-10-PCS; 2017-02-18 02:56)
PROC: B2111ZZ Fluoroscopy of Multiple Coronary Arteries using Low Osmolar Contrast (ICD-10-PCS; 2017-02-18 02:56)
PROC: 5A12012 Performance of Cardiac Output, Single, Manual (ICD-10-PCS; 2017-02-23)
DX: I21.4 Non-ST elevation (NSTEMI) myocardial infarction (principal); N18.6 End stage renal disease; J18.9 Pneumonia, unspecified organism; I44.2 Atrioventricular block, complete; I12.0 Hypertensive chronic kidney disease with stage 5 chronic kidney disease or end stage renal disease; E87.2 Acidosis; N39.0 Urinary tract infection, site not specified; I25.10 Atherosclerotic heart disease of native coronary artery without angina pectoris; E11.22 Type 2 diabetes mellitus with diabetic chronic kidney disease; Z99.2 Dependence on renal dialysis; E78.5 Hyperlipidemia, unspecified; I48.91 Unspecified atrial fibrillation; I95.9 Hypotension, unspecified; H40.9 Unspecified glaucoma; D63.1 Anemia in chronic kidney disease; B96.20 Unspecified Escherichia coli [E. coli] as the cause of diseases classified elsewhere; Z95.5 Presence of coronary angioplasty implant and graft; Z86.73 Personal history of transient ischemic attack (TIA), and cerebral infarction without residual deficits